=== PATIENT | male | born 1930 | race Caucasian/White ===

== ENCOUNTER 2019-05-29 09:00 | Inpatient (IN) | payer MEDICARE, OTHER ==
[~2019-05-29] VITALS: Ht 167.6 cm; Wt 63.6 kg
[~2019-05-29 09:00] MED LIST: ASCO500C7 PO; ASPI-903 PO; BISA10SU16 RC; FURO20TA3 PO; METO-448 PO; MINE133E23 PR; MULT-506 PO; PANT40TA4 PO; POLY17PO28 PO; SENN-120 PO; SPIR25TA PO; UDKCL40 PO
[2019-05-29] MEDS ORDERED: CEFEPIME 2GM/50 ML (PMX) 50 ML IVPB STA (09:04)
[2019-05-29] MEDS ORDERED: morphine 4 MG/ML VIAL IV STA (09:23)
[2019-05-29] MEDS ORDERED: ONDANSETRON 4 MG INJ IV STA (09:23)
[2019-05-29] MEDS ORDERED: ONDANSETRON 4 MG INJ IV PRN ×2 (09:30→20:00)
[2019-05-29] MEDS ORDERED: ACETAMINOPHEN 325 MG TAB PO PRN (09:30)
[2019-05-29] MEDS ORDERED: ACETAMINOPHEN 650 MG SUPP PR ONE (09:30)
[2019-05-29] MEDS ORDERED: VANCOMYCIN 1 GM (PMX) 250 ML IVPB ONE (09:30)
[2019-05-29] MEDS ORDERED: SODIUM CHLORIDE 0.9% 1L BAG IV* STA (09:51)
--- NOTE | 2019-05-29 10:19 | ERD ---
ER Documentation Chief Complaint Chief Complaint shortness of breath, fever HPI Patient is a 88-year-old male with CHF who presents with altered mental status. Please note the history and physical exam is limited secondary to patient's mental status. [facility] The patient had a 101 temp and was 81% on 4 L of oxygen. The patient is increased to 90% with paramedics. He is awake alert and oriented x1 normally. He was tachycardic. He was brought in by ambulance. He is a DNR. Upon review of old medical records this is the patient's first visit to the emergency department. The patient's primary doctor is Dr. Wayne. ROS All systems reviewed and are negative except as per history of present illness. Medications Home Meds Reported Medications Polyethylene Glycol* (Polyethylene Glycol*) 17 Gm Powd.pack, 17 GM PO DAILY PRN for CONSTIPATION, #30 PACKET 05/29/19 Mineral Oil* (Fleet* Mineral Oil Enema) 133 Ml Oil, 133 ML OR DAILY PRN for CONSTIPATION, ENEMA 05/29/19 Bisacodyl (Biscolax) 10 Mg Supp.rect, 10 MG RC DAILY PRN for CONSTIPATION, SUPP.RECT 05/29/19 Ascorbic Acid* (Vitamin C*) 500 Mg Capsule.sa, 500 MG PO BID, CAP 05/29/19 Potassium Chloride* (KCl*) 40 Meq/30 Ml Soln, 20 MEQ PO DAILY, MEQ 05/29/19 Multivitamin with Minerals (Multiple Vitamin) 1 Each Tablet, 1 EACH PO DAILY, TAB 05/29/19 Pantoprazole* (Pantoprazole*) 40 Mg Tablet.dr, 40 MG PO AC BREAKFAST, TAB 05/29/19 Metoprolol Tartrate* (Lopressor*) 25 Mg Tab, 12.5 MG PO BID, #60 TAB 05/29/19 Furosemide* (Furosemide*) 20 Mg Tablet, 20 MG PO BID, #30 TAB 05/29/19 Polyethylene Glycol* (Polyethylene Glycol*) 17 Gm Powd.pack, 17 GM PO BID, #60 PACKET 05/29/19 Aspirin* (Aspirin* Chew) 81 Mg Tab.chew, 81 MG PO DAILY, TAB.CHEW 05/29/19 Spironolactone* (Aldactone*) 25 Mg Tablet, 25 MG PO DAILY, #30 TAB 05/29/19 Sennosides* (Senna Lax*) 8.6 Mg Tablet, 1 TAB PO DAILY, TAB 05/29/19 Allergies Allergies: Coded Allergies: No Known Allergy (Unverified , 05/29/19) PMhx/Soc Hx Respiratory Disorders: Yes (COPD) Hx Cardiac Disorders: Yes (CHF; HTN) Hx Miscellaneous Medical Probl: Yes (ACUTE ENCEPHALOPATHY; UTI) Hx Alcohol Use: No Hx Substance Use: No Hx Tobacco Use: No Smoking Status: Never smoker FmHx Unable to obtain Physical Exam Vitals Vital Signs Date Temp Pulse Resp B/P (MAP) Pulse Ox O2 O2 Flow FiO2 Time Delivery Rate 05/29/19 126 42 122/58 93 Non 09:43 (79) Rebreathe r 05/29/19 103.0 09:18 05/29/19 Rebreathe 15 09:00 r 05/29/19 103.0 132 50 123/68 92 09:00 (86) Physical Exam Const: Severe distress Head: Atraumatic Eyes: Normal Conjunctiva ENT: Dry mucous membranes with purple tongue Neck: Full range of motion. No meningismus. Resp: Coarse breath sounds bilaterally Cardio: Tachycardic rate Abd: Soft, non tender, non distended. Normal bowel sounds Skin: No petechiae or rashes Back: No midline or flank tenderness Ext: No cyanosis, or edema Neur: Altered and not responding to pain or commands Result Diagram: 05/29/1991105/29/19911 Results 24 hrs Laboratory Tests Test 05/29/19 09:12 White Blood Count 39.0 10^3/ul Red Blood Count 4.52 10^6/ul Hemoglobin 11.7 g/dl Hematocrit 39.7 % Mean Corpuscular Volume 87.8 fl Mean Corpuscular Hemoglobin 25.9 pg Mean Corpuscular Hemoglobin Concent 29.5 g/dl Red Cell Distribution Width 21.1 % Platelet Count 425 10^3/UL Mean Platelet Volume 10.5 fl Immature Granulocytes % 1.200 % Neutrophils % % Segmented Neutrophils % (Manual) 55 % Band Neutrophils % (Manual) 10 % Lymphocytes % % Lymphocytes % (Manual) 31 % Reactive Lymphocytes % (Manual) 1 % Monocytes % % Monocytes % (Manual) 3 % Eosinophils % % Basophils % % Nucleated Red Blood Cells % 0.0 /100WBC Immature Granulocytes # 0.470 10^3/ul Neutrophils # 10^3/ul Neutrophils # (Manual) 23.0 10^3/ul Band Neutrophils # 3.9 10^3/ul Lymphocytes (Manual) 12.0 10^3/ul Lymphocytes # 10^3/ul Reactive Lymphocytes # 0.3 10^3/ul Monocytes # 10^3/ul Monocytes # (Manual) 1.1 10^3/ul Eosinophils # 10^3/ul Basophils # 10^3/ul Nucleated Red Blood Cells # 10^3/ul White Cell Morphology Comment @See below Platelet Estimate NORMAL Giant Platelets 1 % Anisocytosis 3+ Macrocytosis 3+ Red Cell Morphology Comment @See below Prothrombin Time 19.9 Sec Prothrombin Time Ratio 1.6 INR International Normalized Ratio 1.68 Activated Partial Thromboplast Time 27.5 Sec Sodium Level 155 mmol/L Potassium Level 4.4 mmol/L Chloride Level 122 mmol/L Carbon Dioxide Level 23 mmol/L Anion Gap 10 Blood Urea Nitrogen 48 mg/dl Creatinine 1.26 mg/dl Est Glomerular Filtrat Rate mL/min mL/min Glucose Level 240 mg/dl POC Venous Lactate 2.3 mmol/L Calcium Level 9.9 mg/dl Total Bilirubin 0.8 mg/dl Direct Bilirubin 0.00 mg/dl Indirect Bilirubin 0.8 mg/dl Aspartate Amino Transf (AST/SGOT) 93 IU/L Alanine Aminotransferase (ALT/SGPT) 100 IU/L Alkaline Phosphatase 59 IU/L Troponin I 0.421 ng/ml Total Protein 8.3 g/dl Albumin 3.5 g/dl Globulin 4.80 g/dl Albumin/Globulin Ratio 0.72 Current Medications Medications Dose Sig/Neo Start Time Status Last (Trade) Ordered Route PRN Stop Time Admin Dose Reason Admin Cefepime HCl 50 ml @ ONCE STAT 05/29/19 DC 05/29/19 100 mls/hr IVPB 09:04 09:18 05/29/19 09:33 Vancomycin 250 ml @ ONCE ONCE 05/29/19 05/29/19 HCl 125 mls/hr IVPB 09:30 09:56 05/29/19 11:29 650 mg ONCE ONCE 05/29/19 DC 05/29/19 Acetaminophen OR 09:30 09:18 (Tylenol 05/29/19 09:31 Supp) Ondansetron 4 mg BRIDGE ORDER 05/29/19 HCl (Zofran PRN IV 09:30 Inj) NAUSEA/VOMITI 05/30/19 09:29 NG 650 mg ER BRIDGE 05/29/19 Acetaminophen PRN PO 09:30 (Tylenol .MILD PAIN 05/30/19 09:29 Tab) 1-3 OR TEMP Morphine 4 mg ONCE STAT 05/29/19 DC 05/29/19 Sulfate IV 09:23 09:37 (morphine) 05/29/19 09:24 Ondansetron 4 mg ONCE STAT 05/29/19 DC 05/29/19 HCl (Zofran IV 09:23 09:37 Inj) 05/29/19 09:24 Sodium 2,100 ml BOLUS OVER 2 05/29/19 DC 05/29/19 Chloride HOURS STAT 09:51 09:52 (NS) IV* 05/29/19 09:52 Aspirin 300 mg ONCE ONCE 05/29/19 (Aspirin) OR 10:30 05/29/19 10:31 Procedures/MDM Chest x-ray shows pneumonia per radiology. EKG read by me: Rate/Rhythm: Sinus tachycardia Intervals: Normal Impression: Tachycardia without ST elevations Sepsis Documentation: Patient's infectious symptoms have not stabilized and the patient is at risk of rapid decompensation. The patient will be admitted for careful hydration, antibiotic therapy, and infectious source control. SEVERE SEPSIS CRITERIA: Infectious source: Pneumonia End organ damage indicated by: Positive troponin, acute respiratory failure SEPSIS MANAGEMENT Time of recognition of sepsis: 9:12 AM. Time of recognition of severe sepsis: 9:12 AM. Time of recognition of septic shock: No septic shock at this time. 3 HOUR BUNDLE Blood cultures x 2 before broad-spectrum antibiotics: Yes 30 ml/kg NS bolus completed Initial lactate 2.3 Repeat lactate pending SEPTIC SHOCK ASSESSMENT: No lactic acid > 4.0 No persistent hypotension (SBP < 90 or 40 mmHg drop, MAP < 65) despite 30 mL/kg IV fluid bolus VOLUME REASSESSMENT FOR SEPTIC SHOCK: No septic shock at this time PERSISTENT HYPOTENSION TREATMENT: Dr. Simpson is ordering an inpatient hospice evaluation Central line not Required Vasopressor started not required I considered further perfusion assessment with CVP measurement, SCVO2, bedside ultrasound volume assessment, passive leg raise, trial of further fluid bolus. And proceeded with 30 ml/kg fluid bolus of NSS, broad spectrum antibiotics, and admission. Patient was given rectal Tylenol for fever and rectal aspirin for positive troponin. I believe the patient is a poor prognosis given his age and comorbidities. The patient would be a good candidate for inpatient hospice as I do believe he is actively dying. CRITICAL CARE Critical care time 35 minutes Emergent fluid management while maintaining close respiratory support. Provision of immediate and broad-spectrum antibiotic therapy. Simultaneous assessment for possible sources in order to direct targeted therapy. Consideration for invasive and chemical support to prevent cardiopulmonary collapse. Critical care time is independent of procedures performed. Departure Diagnosis: Primary Impression: NSTEMI (non-ST elevated myocardial infarction) Additional Impressions: Severe sepsis Pneumonia Pneumonia type: due to unspecified organism Laterality: unspecified laterality Lung location: unspecified part of lung Qualified Codes: J18.9 - Pneumonia, unspecified organism Condition: Serious LARY VILLARREAL MD May 29, 2019 10:19
[2019-05-29] MEDS ORDERED: ASPIRIN 300 MG SUPP PR ONE (10:30)
[2019-05-29] MEDS ORDERED: METOPROLOL 5 MG INJ ONE (12:00)
[2019-05-29 19:31] VITALS: BP 117/59; PULSE 120; RESP 23
[2019-05-29] MEDS ORDERED: VANCOMYCIN IV PER PHARMACY XX SCH (20:00)
[2019-05-29] MEDS ORDERED: morphine 2 MG INJ IV PRN (20:00)
[2019-05-29] MEDS: DEXTROSE 5%-0.9% NACL 1,000 ML IV SCH (20:16)
--- NOTE | 2019-05-29 20:31 | HP ---
DATE OF ADMISSION: 05/29/2019 HISTORY OF PRESENT ILLNESS: An 88-year-old male who was admitted through emergency room. The patien t was transferred from [place] upon my request after receiving a phone call from [facility] that the patient is in acute respiratory distress, hypoxic and tachycardic. 911 was c alled, and the patient was brought in via ambulance to the emergency room. In the ambulance, the pat bipin had a 101 temperature, 81% on 4 liters of oxygen saturation, and tachycardic in the 100s and 110 s. When the patient was brought in the ER, he was put on a mask 15%. Saturation went up to 90s, and he was breathing a little bit better, still tachycardic. The patient is awake and alert x1. This i s a patient of mine of many years who has been at our correction facility in the past and recent ly hospitalized for aspiration pneumonia, advanced encephalopathy and CHF. The patient, at the time, the family decided that he would have a G-tube, and therefore post-hospitalization transfer to [facility] [place]. At [place] today, as I mentioned above, increasing shortness of breath, tachypnea, hypoxia, and then transferred to the emergency room. The patient, upon his req uest, is DNR. HOME MEDICATIONS: 1. He has stool softeners p.r.n. as necessary. 2. Vitamin C daily. 3. Potassium chloride 40 daily. 4. Multivitamins daily. 5. Protonix 40 daily. 6. Metoprolol 25 mg half a tablet twice a day. 7. Lasix 20 mg tablet daily. 8. Aspirin 81 mg daily. 9. Spironolactone 25 mg p.o. daily. ALLERGIES: NO KNOWN ALLERGIES. PAST MEDICAL HISTORY: Advanced encephalopathy, COPD, hypertension with heart disease and heart failu re, chronic UTIs, dysphagia, gastroesophageal reflux disease and dyslipidemia. PAST SURGICAL HISTORY: No history of alcohol abuse or drug abuse. No history of smoking. The patie nt has a family history of hypertension. REVIEW OF SYSTEMS: Unable to get, as I mentioned earlier, any history from the patient because he is confused, only responds to painful stimuli, and generally the patient is overall confused. PHYSICAL EXAMINATION: VITAL SIGNS: At this time, blood pressure is 100/60, respiratory rate is 18, and he is saturating 93 % on a nonrebreather mask, 15% oxygen, and heart rate is 98, temperature 103.0 at this time. PHYSICAL EXAMINATION: GENERAL: The patient is in severe distress, pale, cachectic and diaphoretic. HEENT: Head is atraumatic, normocephalic. Pupils are equal and reactive to light. Extraocular musc les are intact. Nares are clear, no obstruction, no deviation of the septum. Oral cavity: Normal o ral hygiene. Dry tongue. NECK: Supple. No JVD, no surgical scars, no lymph nodes palpable over the neck. CHEST: AP contour is deformed due to deformities over the rib cage and thoracic spine. HEART: S1, S2, tachycardic with a harsh systolic murmur over the apex and cardiomegaly. LUNGS: Scattered rhonchi over the lungs with inspiratory and expiratory wheezes and poor effort on t he patient's side. ABDOMEN: Soft, positive bowel sounds, no hepatosplenomegaly, no masses palpable over the abdomen, an d no rebound tenderness. EXTREMITIES: No edema, clubbing or cyanosis of the extremities. NEUROLOGIC: Unable to assess neurologically due to the altered mental status and no response of the patient. LABORATORY DATA: Labs today: CBC: White count is 39,000, hemoglobin 11.7, hematocrit 39.7, and viry telet count 425. Chemistry: Sodium 155, potassium 4.4, glucose 122, BUN is 48, creatinine 1.26. Ch est x-ray shows cardiomegaly with CHF and pneumonia. Cardiac enzymes, first set 0.4, positive tropon in. PLAN: I had long discussion with the family members, the nephew, the brothers, the brother's son who are responsible for him, and according to his request, the patient wanted to be DNR. Therefore, I e xplained to them that the patient's situation is that the patient is very sick with severe sepsis, an d we will try to do our best for him without intubation. Therefore, start IV antibiotic, IV hydratio n. Will consult with manager produce, infectious disease, and also with the special education curriculum specialist. ADMITTING DIAGNOSES: 1. Severe sepsis. 2. Pneumonia. 3. Congestive heart failure. 4. Hypoxemia. 5. Possible ischemia. 6. Encephalopathy. Dictated By: IRA BERMAN/HARJIT Conf#: [id number] [facility]#: [id number]
[2019-05-29] MEDS: ALBUTEROL/IPRATROPIUM (NEB) 3 ML AMP HHN SCH (20:56)
[2019-05-29] MEDS: CEFEPIME 2GM/50 ML (PMX) 50 ML IVPB SCH (21:28)
[2019-05-29 22:10] VITALS: Ht 167.6 cm; Wt 63.6 kg
[2019-05-30] VITALS (17 sets, daily range): BP systolic 92–136; BP diastolic 47–63; PULSE 107–133; RESP 17–33
[2019-05-30] MEDS: PANTOPRAZOLE 40 MG INJ IV SCH (05:32)
[2019-05-30] MEDS: ACETAMINOPHEN 650 MG SUPP PR PRN (08:00)
[2019-05-30] MEDS ORDERED: METOPROLOL 5 MG INJ IV ONE (09:00)
[2019-05-30] MEDS: CEFEPIME 2GM/50 ML (PMX) 50 ML IVPB SCH ×2 (09:04→20:17)
[2019-05-30] MEDS: ALBUTEROL/IPRATROPIUM (NEB) 3 ML AMP HHN SCH ×3 (09:29→20:55)
[2019-05-30] MEDS: VANCOMYCIN 1 GM 250 ML IVPB SCH (09:55)
[2019-05-30] MEDS ORDERED: HEPARIN 1000 UNITS/ML 10 ML INJ IV ONE (10:00)
[2019-05-30] MEDS ORDERED: HEPARIN 1000 UNITS/ML 10 ML INJ IV PRN (10:00)
[2019-05-30] MEDS ORDERED: HEPARIN 25000 UNITS/250 ML 250 ML IV SCH (10:00)
--- NOTE | 2019-05-30 10:17 | QN ---
Documentation Comment PERSONAL ASSISTANT called. Was notified roughly around 9:40 AM to 9:45 AM. Patient seen and reported with elevated heart rate around 130s. Patient upon interview was alert but unable to answer verbally. Suspect with underlying dementia as per RN. Noted to be tachypneic and provided with o2 via simple mask. ABG orderd (results pending). Noted with fevers has been 101.6 at 8 AM. Patient with Septic picture. Patient was provided with 5 milligrams IV metoprolol with good response and heart rate did decrease to around 101. BP was 107/47. Patient also with elevated troponin upward trending and patient was placed on heparin drip. Order was plan for patient to go to telemetry. Chest x-ray also ordered. EKG obtained with sinus tachycardia. RN notified to call primary physician for notification as well as ventilation worker. Patient stabilized and transfer to telemetry Discussed POC with MAURILIO Manriquez NP May 30, 2019 10:17
--- NOTE | 2019-05-30 10:31 | PN ---
DATE: 05/30/2019 SUBJECTIVE: He is an 88-year-old male who was admitted through emergency room for acute respiratory distress, acute hypoxemia and sepsis with fever of 103. The patient being DNR was admitted to med/[facility] and started on IV hydration, IV antibiotic treatment and breathing treatments. Today 05/30/2019, the patient still is running a fever of 101. The patient is a lethargic, grasping for air. He is on a 15% oxygen mask and he is generally a very poor response, nonresponsive. He has history of advanc ed Alzheimer dementia and at this point today, he is confused and very lethargic. OBJECTIVE: VITAL SIGNS: Blood pressure is 116/55, heart rate is 133, respiratory rate is 32 and he is on a mask with 15% and his temperature is 101.6. GENERAL: He is grasping for air. HEART: S1, S2, regular rate and rhythm with cardiomegaly. LUNGS: Scattered rhonchi and crackles over the lungs bilaterally. ABDOMEN: Soft, positive bowel sounds, no hepatosplenomegaly, no masses palpable over the abdomen and no rebound tenderness. EXTREMITIES: No edema, clubbing or cyanosis of the extremities. LABORATORY DATA: Today, the sodium is 158, potassium is 4.6, BUN 64, creatinine 1.48. His troponins are elevated today 0.303, yesterday 0.286 and he has elevated BNP 71,000. CBC today, white count is 36,000, down from 39,000 yesterday. Hemoglobin is 10.8, hematocrit 38, platelet count 312. Patient 's blood cultures came back positive to gram-positive cocci in pairs and chains. ADMITTING DIAGNOSES: 1. Severe sepsis. 2. Pneumonia. 3. Respiratory distress. 4. Congestive heart failure. 5. Possible ischemia, rule out myocardial infarction. 6. Encephalopathy. 7. Degenerative joint disease. 8. Gastroesophageal reflux disease. 9. Hypotension. PLAN: The patient should be transferred to tele. Even though the patient is DNR, we should address elevated heart rate with some IV metoprolol because the patient is at this point unable to take anyth ing orally. For close monitoring, ordered the patient to be transferred to tele. Will call Dr. Hi adams for cardiac consult, ID consult with Dr. Sow and continue IV hydration, IV antibiotic and caridad thing treatments. Dictated By: IRA GALINDO MD SB/NTS Conf#: [id number] DID#: [id number] CC: JOCE ALBERT MD;*EndCC*
[2019-05-30] MEDS ORDERED: METOPROLOL 5 MG INJ IV PRN (13:30)
[2019-05-30] MEDS ORDERED: DIGOXIN 500 MCG INJ IV ONE (13:30)
--- NOTE | 2019-05-30 15:00 | CONS ---
DATE OF ADMISSION: 05/29/2019 DATE OF CONSULTATION: 05/30/2019 TYPE OF CONSULTATION: Infectious Disease. REASON FOR CONSULTATION: Antibiotic management. HISTORY OF PRESENT ILLNESS: Ace Gross is an 88-year-old [place] male who comes in wi th shortness of breath and fever. Patient has a history of CHF and presents with altered mental stat us. Comes from [facility] facility with a temperature of 101 and was 81%, oxygen saturation on 4 liters of oxygen. He was increased to 90% with paramedics. He is alert x1. He is tachycardic. H e is a DNR. His primary doctor is Dr. Wayne. PAST MEDICAL PROBLEMS: Include: 1. COPD. 2. Congestive heart failure. 3. Hypertension. 4. Acute encephalopathy. 5. Urinary tract infection. 6. Probable senile dementia. Acutely, the patient presents in moderate to severe distress. His temperature was 103, his pulse was 132, respirations of 50, consistent with systemic inflammatory response syndrome. His white count w as 39,000, H and H 11.7/39.7, platelet count 425,000. BUN and creatinine 48/1.26, glucose of 240. PAST MEDICAL HISTORY: As outlined. FAMILY HISTORY: Noncontributory. SOCIAL HISTORY: He does not smoke, drink or abuse drugs. ALLERGIES: NONE TO PENICILLIN, SULFA OR FOODS. MEDICATIONS: Per chart. REVIEW OF SYSTEMS: Noncontributory. PHYSICAL EXAMINATION: GENERAL: The patient is awake, responsive, in some moderate to severe distress. VITAL SIGNS: T-max 103. SKIN: Without generalized rash. HEENT: Within normal limits. NECK: Supple. LYMPH NODES: None palpable. CHEST: Coarse rhonchi bilaterally with decreased breath sounds at the bases. HEART: Tachycardic. ABDOMEN: Soft, nontender, without organosplenomegaly or masses. EXTREMITIES: Without cyanosis, clubbing, or edema. RECTAL AND GENITAL: Deferred. NEUROLOGIC: No focal neurological abnormality. IMPRESSION AND PLAN: Patient was started on vancomycin and cefepime. EKG showed sinus tachycardia. Chest x-ray shows right basilar pneumonia, mild cardiomegaly with aortic atherosclerosis. Additiona l patchy opacities in the left lung which may reflect edema or multifocal pneumonia. Blood cultures positive for gram-positive cocci in pairs and chains, 1/2 bottles. White count today is 36,000. The patient is clearly septic, on vancomycin and cefepime. The patient's primary physician is Dr. Mahendra zepeda. The patient with severe sepsis, pneumonia, congestive heart failure, possible ischemia and enc ephalopathy. Today, his temperature is still 10/17/2018 is lethargic and gasping for air. He is on 15% oxygen mask. He has advanced Alzheimer's. He should be transferred to telemetry. Even though t he patient is DNR, we should address elevated heart rate with IV metoprolol. Dr. Rosenthal was called for cardiac consultation and we were called for infectious disease. At this point, he is on appropri ate antibiotic therapy. I want to thank Dr. Wayne for asking us to see this unfortunate gentleman in consultation. Dictated By: MURALI BURKS MD, JD/HARJIT Conf#: [id number] DID#: [id number] CC: IRA WAYNE MD;*End*
[2019-05-30] MEDS: DEXTROSE 5%-0.9% NACL 1,000 ML IV SCH (16:16)
--- NOTE | 2019-05-30 17:15 | RADRPT ---
Echocardiogram Report Patient Name: FADUMO LANPatient ID: [id number] : 109 (88y 10m)Study Date: 05/30/2019 2:41:34 PM Gender: MAccession #: [id number] Tech: Tip Morrissey [facility] Location: [address] Ref.Physician: JOCE ROSENTHAL Height(Cm): BSA: Weight(Kg): Quality: AdequateOrder Physician: JOCE ROSENTHAL Account #: Procedures: Echocardiographic Report: Transthoracic echocardiogram with complete 2D, M-Mode, and doppler examination. Indications: Positive Troponin, and Tachycardia. Measurements: 2D/M Mode Doppler Measurement Value Normal Range Measurement Value Normal Range LVIDd 2D 5.1 [ 4.2 - 5.8 ] cm SABRINA VTI 0.5 [ 2.0 - 4.0 ] cm2 LVIDs 2D 4.2 [ 2.5 - 4.0 ] cm AV Mean Art 3.7 [ 70.0 - 90.0 ] cm/sec LVPWd 2D 1.3 [ 0.6 - 1.0 ] cm AV Mean PG 67.0 [ 2.0 - 4.0 ] mmHg IVSd 2D 1.4 [ 0.6 - 1.0 ] cm AV VTI 112.0 cm IVS/LVPW 2D 1.0 ratio LVOT Mean Art 0.7 [ 60.0 - 80.0 ] cm/sec AoR Diam 2D 2.9 [ 2.6 - 3.4 ] cm LVOT Mean PG 2.0 [ 1.0 - 3.0 ] mmHg LA/Ao 2D 1 ratio LVOT Peak Art 1.0 [ 70.0 - 110.0 ] cm/sec LA Dimen 2D 3.8 [ 3.0 - 4.0 ] cm LVOT Peak PG 4.0 [ 2.0 - 6.0 ] mmHg LVOT Diam 2.0 [ 2.3 - 2.9 ] cm LVOT VTI 20.4 [ 20.0 - 30.0 ] cm LVOT Area 3.1 cm2 MV E Peak Art 1.4 [ 60.0 - 130.0 ] cm/sec MV Decel Time 183 [ 104 - 258 ] msec TR Peak Art 4.1 [ 100.0 - 280.0 ] cm/sec TR Peak PG 68.0 mmHg RVSP 71.0 [ 10.0 - 36.0 ] mmHg RA Pressure 3.0 mmHg Findings: Left Ventricle: Lower limits of normal systolic function. Normal left ventricular cavity size. Mild concentric left ventricular hypertrophy. Moderate global left ventricular systolic dysfunction. Ejection fraction is visually estimated at 35 %. Tissue Doppler/Mitral Doppler indices are consistent with restrictive physiology with markedly elevated left atrial pressure (Stage III-IV diastolic dysfunction). Right Ventricle: Normal right ventricular size. Normal right ventricular systolic function. Left Atrium: The left atrium is normal in size. Right Atrium: The right atrium is normal in size. Mitral Valve: Mitral valve leaflets appear mildly thickened. Mild mitral annular calcification. Mild to moderate mitral valve regurgitation. Aortic Valve: Severe aortic stenosis. Aortic valve Max velocity 6.20 m/sec. Max PG 154.00 mmHg. Mean PG 83.00 mmHg. Aortic valve area 0.51 cm2. Severe Aortic sclerosis. Moderate aortic valve regurgitation. Tricuspid Valve: Normal appearance of the tricuspid valve. The estimated Peak RVSP is 71 mmHg. There is mild to moderate tricuspid regurgitation. Pericardium: Normal pericardium with no significant pericardial effusion. Left pleural effusion seen. Aorta: Normal aortic root. IVC: Normal size and normal respiratory collapse consistent with normal right atrial pressure. Conclusions: Lower limits of normal systolic function. Normal left ventricular cavity size. Mild concentric left ventricular hypertrophy. Moderate global left ventricular systolic dysfunction. Ejection fraction is visually estimated at 35 %. Tissue Doppler/Mitral Doppler indices are consistent with restrictive physiology with markedly elevated left atrial pressure (Stage III-IV diastolic dysfunction). Mitral valve leaflets appear mildly thickened. Mild mitral annular calcification. Mild to moderate mitral valve regurgitation. Severe aortic stenosis. Aortic valve Max velocity 6.20 m/sec. Max PG 154.00 mmHg. Mean PG 83.00 mmHg. Aortic valve area 0.51 cm2. Severe Aortic sclerosis. Moderate aortic valve regurgitation. Normal appearance of the tricuspid valve. The estimated Peak RVSP is 71 mmHg. There is mild to moderate tricuspid regurgitation. Normal pericardium with no significant pericardial effusion. Left pleural effusion seen. Electronically Signed By: Joce Rosenthal 2019-05-30 17:14:51 PDT
--- NOTE | 2019-05-30 17:18 | RADRPT ---
Vent Rate: 130 bpm RR Interval: 460 msec NV Interval: 126 msec QRS Duration: 88 msec QT Interval: 338 msec QTC Interval: 498 msec P-R-T [place]: 62 - 38 - 197 degrees Sinus tachycardia...rate> 99 LVH with secondary repolarization abnormality...multi-LVH criteria, abnrm ST-T Anterior Q waves, possibly due to LVH...Q >30mS in V2-V5 & LVH Electronically Signed By: Joe Rosenthal
--- NOTE | 2019-05-30 17:23 | CONS ---
DATE OF ADMISSION: 05/29/2019 DATE OF CONSULTATION: 05/30/2019 TYPE OF CONSULTATION: Cardiology. REASON FOR CONSULTATION: Tachycardia, congestive heart failure. REQUESTING PHYSICIAN: Nick Galindo MD HISTORY OF PRESENT ILLNESS: Mr. 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 Upon arrival, temperature of 103, blood pressure 122/68, pulse 132, respiratory rat e 15, satting 93% on 15 liters nonrebreather. The patient's labs were notable for a white blood cell count of 39,000, hemoglobin 11.7, platelet count of 425, sodium of 155, potassium 4.4, creatinine 1. 26, BUN of 48, lactic acid of 2.5, troponin of 0.421, AST of 93, ALT 100, BNP of 71,700, INR 1.68, UA positive. The patient underwent a chest x-ray which revealed mild cardiomegaly with aortic atherosc lerosis, right basilar pneumonia. The patient underwent electrocardiogram which revealed sinus tachy cardia, rate of 130, normal axis, normal intervals, left ventricular hypertrophy by voltage criteria with secondary repolarization abnormalities. The patient subsequently required admit to the floor an d into the ICU now where he remains. The patient is nonresponsive to questioning of his chest pain o r shortness of breath. PAST MEDICAL HISTORY: As above in HPI. MEDICATIONS CURRENTLY IN HOSPITAL: 1. Vancomycin. 2. Protonix. 3. Cefepime. 4. IV fluid hydration of 50 mL an hour. 5. Tylenol. 6. Morphine. 7. Zofran. ALLERGIES: NO KNOWN DRUG ALLERGIES. SOCIAL HISTORY: No current tobacco, EtOH or illicit drug use. FAMILY HISTORY: No history of sudden cardiac or early CAD. REVIEW OF SYSTEMS: As above in HPI. CONSTITUTIONAL: No fevers, chills. PULMONARY: Positive tachypnea. GASTROINTESTINAL: No vomiting. GENITOURINARY: No hematuria, but renal failure. PSYCHIATRIC: No documented psychiatric history. NEUROLOGIC: No documented history of CVA. ENDOCRINE: No documented history of diabetes mellitus or thyroid disease. PHYSICAL EXAMINATION: VITAL SIGNS: Temperature 97.9, blood pressure 114/53, pulse 117, respiratory rate 17, satting 98% on 6 liters. GENERAL: The patient is encephalopathic, nonresponsive, facemask in place. NECK: JVP is approximately 9 cm water. CHEST: Upper airway transmitted rhonchorous sounds. HEART: Tachycardic, regular rhythm, increased S2, I/ systolic murmur, nondisplaced PMI. ABDOMEN: Positive bowel sounds, soft. EXTREMITIES: Trace edema, 1+ pulses bilateral posterior tibial. LABORATORY DATA: Most recently from today, sodium 158, potassium 4.6, creatinine 0.48, BUN of 64. T roponin 0.303. BNP of 71,700. IMAGING STUDIES: Chest x-ray from today revealing bilateral lower lung alveolar infiltrates or pneum onia. ELECTROCARDIOGRAM: As above in HPI. No further electrocardiograms for my review at this time. IMPRESSION: 1. Tachycardia at this time consistent with sinus tachycardia. 2. Abnormal electrocardiogram, diffuse nonspecific ST and T-wave abnormalities, assess for acute cor onary syndrome. 3. Positive troponins in the setting of renal failure likely type 2 demand infarct. Continue to ass ess. 4. Bacteremia. Blood cultures are positive from 05/29/2019. 5. Anemia. 6. Leukocytosis, severe. 7. Renal failure. 8. Hypernatremia. 9. Elevated BNP. 10. Coagulopathy. 11. Urinary tract infection. RECOMMENDATIONS: 1. At this time, we would maintain the patient in ICU or tele for close monitoring. 2. Continue the patient's broad-spectrum antibiotics and follow up all culture data and sensitivitie s. 3. We will give patient a dose of digoxin in attempt to improve heart rate control and consider IV p ush dose of beta karen as tolerated to improve overall heart rate control. 4. Check a 2D echo for this patient's ejection fraction, wall motion, rule out any major valve abnor malities. 5. Continue the patient's IV fluid hydration at this time needing free water for elevated sodium as well. 6. Continue to trend the patient's cardiac enzymes, assess for any significant ongoing cardiac damag e. 7. Continue the patient's respiratory support. Thank you for allowing me to take part in the care of this patient. I will continue to follow him al juana very closely with you with further recommendations to be made as the patient progresses to his in patient hospital clinical course. Dictated By: JOCE MORALES/HARJIT Conf#: [id number] DID#: [id number] CC: NICK GALINDO MD;*EndCC*
[2019-05-31] VITALS (17 sets, daily range): BP systolic 91–119; BP diastolic 44–63; PULSE 97–154; RESP 24–36
[2019-05-31] MEDS: PANTOPRAZOLE 40 MG INJ IV SCH (05:07)
[2019-05-31] MEDS: DEXTROSE 5% 1,000 ML IV SCH (06:48)
[2019-05-31] MEDS: ALBUTEROL/IPRATROPIUM (NEB) 3 ML AMP HHN SCH ×3 (08:40→19:38)
[2019-05-31] MEDS: CEFEPIME 2GM/50 ML (PMX) 50 ML IVPB SCH (08:50)
[2019-05-31] MEDS ORDERED: DIGOXIN 500 MCG INJ IV ONE ×3 (09:50→16:00)
[2019-05-31] MEDS ORDERED: DILTIAZEM 25 MG INJ IV ONE (10:30)
[2019-05-31] MEDS: VANCOMYCIN 1 GM 250 ML IVPB SCH (10:55)
[2019-05-31] MEDS ORDERED: AMIODARONE 900 MG in DEXTROSE 5% 482 ML IV SCH (12:30)
[2019-05-31] MEDS ORDERED: AMIODARONE 150MG/D5W BOLUS 100 ML IV ONE (12:30)
--- NOTE | 2019-05-31 13:04 | CONS ---
Assessment/Plan Assessment/Plan Hospital Course (Demo Recall) IMPRESSION: 1. Tachycardia at this time consistent with sinus tachycardia- This am c/w AF. 2. Abnormal electrocardiogram, diffuse nonspecific ST and T-wave abnormalities, assess for acute coronary syndrome.- no significant uotrend 3. Positive troponins in the setting of renal failure likely type 2 demand infarct. Continue to assess. 4. Bacteremia. Blood cultures are positive from 05/29/2019. 5. Anemia. 6. Leukocytosis, severe. 7. Renal failure. 8. Hypernatremia. 9. Elevated BNP. 10. Coagulopathy. 11. Urinary tract infection. 12. hypernatremia Recc: -Tele -serial ecg's -Continue abx's and f/u cx data -Will give additional digoxin IVP -start amiodarone -free water for elevated na -recheck INR and see if there is need for systemic anticoag -continue IVP BB as tolerated Consultation Date/Type/Reason Admit Date/Time May 29, 2019 at 09:16 Initial Consult Date 05/30/19 Type of Consult Cardiology Reason for Consultation tachycardia Requesting Provider: IRA GALINDO MD Date/Time of Note DATE: 05/31/19 TIME: 12:56 Exam/Review of Systems Vital Signs Vitals Vital Signs Date Temp Pulse Resp B/P (MAP) Pulse Ox O2 O2 Flow FiO2 Time Delivery Rate 05/31/19 154 32 93/60 (71) 98 10:00 05/31/19 3.0 08:40 05/31/19 98.1 Nasal 08:00 Cannula Intake and Output 05/30/19 05/30/19 05/31/19 1515:00 23:00 07:00 IntakeIntake Total 700 ml 450 ml 350 ml OutputOutput Total 200 ml 150 ml 300 ml BalanceBalance 500 ml 300 ml 50 ml Exam Exam Review of Systems: CONSTITUTIONAL: No fevers, chills. PULMONARY: No sob CARDIOVASCULAR: No chest pain/palpitations GASTROINTESTINAL: No nausea/vomiting. GENITOURINARY: No hematuria/dysuria. MUSCULOSKELETAL: No myagias/arthalgias. PSYCHIATRIC: The patient denies depression. NEUROLOGIC: No weakness Constitutional: alert, oriented Psych: no complaints Head: normocephalic ENMT: mucosa pink and moist Neck: supple, jvd (9 cm water) Respiratory: diminished breath sounds (at bases/B) Cardiovascular: regular rate and rhythm Gastrointestinal: soft, non-tender Musculoskeletal: muscle weakness (generalized) Extremities: edema (none) Neurological: other (No focal deficits) Labs Result Diagram: 05/31/19 0453 05/31/19 0453 Results 24hrs Laboratory Tests Test 05/30/19 19:00 05/31/19 00:29 05/31/19 04:53 05/31/19 09:19 Creatine Kinase 34 32 30 Creatine Kinase 4.2 5.3 8.4 Index Creatinine Kinase MB 1.43 1.68 2.51 H (Mass) Troponin I 0.291 *H 0.228 *H 0.195 *H White Blood Count 34.4 H Red Blood Count 3.54 L Hemoglobin 9.3 L Hematocrit 32.9 L Mean Corpuscular 92.9 Volume Mean Corpuscular 26.3 L Hemoglobin Mean Corpuscular 28.3 L Hemoglobin Concent Red Cell 21.0 H Distribution Width Platelet Count 213 # Mean Platelet Volume 11.4 H Immature 1.300 H Granulocytes % Neutrophils % Segmented 49 Neutrophils % (Manual) Band Neutrophils % 19 H (Manual) Lymphocytes % Lymphocytes % 28 (Manual) Monocytes % Monocytes % (Manual) 4 Eosinophils % Basophils % Nucleated Red Blood 0.0 Cells % Immature 0.440 H Granulocytes # Neutrophils # Neutrophils # 19.1 H (Manual) Band Neutrophils # 6.5 H Lymphocytes (Manual) 9.6 H Lymphocytes # Monocytes # Monocytes # (Manual) 1.3 H Eosinophils # Basophils # Nucleated Red Blood Cells # Platelet Estimate NORMAL Giant Platelets 1 H Polychromasia 3+ Poikilocytosis 3+ Anisocytosis 1+ Macrocytosis 1+ Target Cells 1+ Sodium Level 163 *H Potassium Level 4.1 Chloride Level 136 H Carbon Dioxide Level 24 Anion Gap 3 L Blood Urea Nitrogen 71 H Creatinine 1.29 H Est Glomerular Filtrat Rate mL/min Glucose Level 157 Calcium Level 9.3 B-Type Natriuretic 09066 H Peptide Vancomycin Level 11.8 Trough Medications Medications Current Medications Vancomycin HCl (Vanco Iv Per Pharmacy) VANCOMYCIN PER PHARMACY PER PROTOCOL XX ; Start 05/29/19 at 20:00 Cefepime HCl 50 ml @ 100 mls/hr Q12 IVPB Last administered on 05/31/19at 08:50; Admin Dose 100 MLS/HR; Start 05/29/19 at 21:00 Albuterol/ Ipratropium (Duoneb) 3 ml Q6HWA RESP THERAPY HHN Last administered on 05/30/19 20:55; Admin Dose 3 ML; Start 05/29/19 at 20:00 Vancomycin HCl 250 ml @ 125 mls/hr Q24H IVPB Last administered on 05/31/19 10:55; Admin Dose 125 MLS/HR; Start 05/30/19 at 10:00 Acetaminophen (Tylenol Supp) 650 mg Q4H PRN [place] MILD PAIN(1-3) OR TEMP AOBE 99 Last administered on 05/30/19 08:00; Admin Dose 650 MG; Start 05/29/19 at 20:00 Pantoprazole (Protonix Iv) 40 mg DAILY@06 IV Last administered on 05/31/19 05:07; Admin Dose 40 MG; Start 05/30/19 at 06:00 Morphine Sulfate (morphine) 2 mg Q4H PRN IV SEVERE PAIN LEVEL 7-10/sob Last administered on 05/30/19 00:35; Admin Dose 2 MG; Start 05/29/19 at 20:00 Ondansetron HCl (Zofran Inj) 4 mg Q4H PRN IV NAUSEA AND/OR VOMITING; Start 05/29/19 at 20:00 Metoprolol Tartrate (Lopressor) 5 mg Q4H PRN IV HR>110 Hold SBP<100 Last administered on 05/31/19 08:50; Admin Dose 5 MG; Start 05/30/19 at 13:30 Dextrose 1,000 ml @ 50 mls/hr Q20H IV Last administered on 05/31/19 06:48; Admin Dose 50 MLS/HR; Start 05/31/19 at 06:30 Amiodarone HCl 100 ml @ 600 mls/hr ONCE ONCE IV ; Start 05/31/19 at 12:30; Stop 05/31/19 at 12:39; Status UNV Amiodarone HCl 900 mg/Dextrose 500 ml @ 0 mls/hr Q0M IV ; Start 05/31/19 at 12:30; Status UNV JOCE ALBERT May 31, 2019 13:04
[2019-05-31] MEDS ORDERED: FUROSEMIDE 20 MG INJ IV ONE (13:30)
[2019-05-31] MEDS ORDERED: DILTIAZEM 25 MG INJ IV PRN (13:30)
--- NOTE | 2019-05-31 13:44 | CONS ---
Assessment/Plan Assessment/Plan Hospital Course (Demo Recall) Patient is obtunded and hypotensive he is in no distress afebrile with a T-max yesterday 101.6. T-current 98.1 pulse 134 respirations 35 blood pressure 93/60 saturation 98 on 3 L WBC 34.4 platelets 213 bands 19 BUN 71 creatinine 1.29. Troponin 0 0.195 Microbiology: Urine culture grew enterococcus species blood culture on admission grew alphahemolytic strep species MRSA swab was positive Indwelling: Houser peripheral IV Antimicrobials: Vanco cefepime Physical examination this is a chronically ill fragile elderly man who is in no distress head atraumatic normocephalic neck is supple chest rise symmetrical breath sounds diminished bases. Heart: S1-S2. Abdomen soft bowel sounds hypo active extremities without cyanosis Assessment: 1. Severe sepsis with shock 2. Bilateral pneumonia, possibly aspiration 3. Urinary tract infection 4. Atrial fibrillation 5. MRSA nares colonization 6. Acute non-ST elevation FL with ejection fraction of 35% 7. Acute renal failure 8. Acute encephalopathy 9. Dementia 10. Severe aortic stenosis Plan: Patient is doing poorly he is DNR and DNI status, cardiology on case, continue on current antibiotics, add Bactroban to nares Consultation Date/Type/Reason Admit Date/Time May 29, 2019 at 09:16 Initial Consult Date Type of Consult id Requesting Provider: IRA GALINDO MD Date/Time of Note DATE: 05/31/19 TIME: 13:44 Exam/Review of Systems Exam Vitals Vital Signs Date Temp Pulse Resp B/P (MAP) Pulse Ox O2 O2 Flow FiO2 Time Delivery Rate 05/31/19 154 32 93/60 (71) 98 10:00 05/31/19 3.0 08:40 05/31/19 98.1 Nasal 08:00 Cannula Intake and Output 05/30/19 05/30/19 05/31/19 1414:59 22:59 06:59 IntakeIntake Total 650 ml 450 ml 350 ml OutputOutput Total 200 ml 150 ml 300 ml BalanceBalance 450 ml 300 ml 50 ml Results Result Diagram: 05/31/19 0453 05/31/19 0453 Results 24hrs Laboratory Tests Test 05/30/19 19:00 05/31/19 00:29 05/31/19 04:53 05/31/19 09:19 Creatine Kinase 34 32 30 Creatine Kinase 4.2 5.3 8.4 Index Creatinine Kinase MB 1.43 1.68 2.51 H (Mass) Troponin I 0.291 *H 0.228 *H 0.195 *H White Blood Count 34.4 H Red Blood Count 3.54 L Hemoglobin 9.3 L Hematocrit 32.9 L Mean Corpuscular 92.9 Volume Mean Corpuscular 26.3 L Hemoglobin Mean Corpuscular 28.3 L Hemoglobin Concent Red Cell 21.0 H Distribution Width Platelet Count 213 # Mean Platelet Volume 11.4 H Immature 1.300 H Granulocytes % Neutrophils % Segmented 49 Neutrophils % (Manual) Band Neutrophils % 19 H (Manual) Lymphocytes % Lymphocytes % 28 (Manual) Monocytes % Monocytes % (Manual) 4 Eosinophils % Basophils % Nucleated Red Blood 0.0 Cells % Immature 0.440 H Granulocytes # Neutrophils # Neutrophils # 19.1 H (Manual) Band Neutrophils # 6.5 H Lymphocytes (Manual) 9.6 H Lymphocytes # Monocytes # Monocytes # (Manual) 1.3 H Eosinophils # Basophils # Nucleated Red Blood Cells # Platelet Estimate NORMAL Giant Platelets 1 H Polychromasia 3+ Poikilocytosis 3+ Anisocytosis 1+ Macrocytosis 1+ Target Cells 1+ Sodium Level 163 *H Potassium Level 4.1 Chloride Level 136 H Carbon Dioxide Level 24 Anion Gap 3 L Blood Urea Nitrogen 71 H Creatinine 1.29 H Est Glomerular Filtrat Rate mL/min Glucose Level 157 Calcium Level 9.3 B-Type Natriuretic 50947 H Peptide Vancomycin Level 11.8 Trough Medications Medication Current Medications Vancomycin HCl (Vanco Iv Per Pharmacy) VANCOMYCIN PER PHARMACY PER PROTOCOL XX ; Start 05/29/19 at 20:00 Cefepime HCl 50 ml @ 100 mls/hr Q12 IVPB Last administered on 05/31/19at 08:50; Admin Dose 100 MLS/HR; Start 05/29/19 at 21:00 Albuterol/ Ipratropium (Duoneb) 3 ml Q6HWA RESP THERAPY HHN Last administered on 05/30/19at 20:55; Admin Dose 3 ML; Start 05/29/19 at 20:00 Vancomycin HCl 250 ml @ 125 mls/hr Q24H IVPB Last administered on 05/31/19at 10:55; Admin Dose 125 MLS/HR; Start 05/30/19 at 10:00 Acetaminophen (Tylenol Supp) 650 mg Q4H PRN [place] MILD PAIN(1-3) OR TEMP AOBE 99 Last administered on 05/30/19at 08:00; Admin Dose 650 MG; Start 05/29/19 at 20:00 Pantoprazole (Protonix Iv) 40 mg DAILY@06 IV Last administered on 05/31/19at 05:07; Admin Dose 40 MG; Start 05/30/19 at 06:00 Morphine Sulfate (morphine) 2 mg Q4H PRN IV SEVERE PAIN LEVEL 7-10/sob Last administered on 05/30/19at 00:35; Admin Dose 2 MG; Start 05/29/19 at 20:00 Ondansetron HCl (Zofran Inj) 4 mg Q4H PRN IV NAUSEA AND/OR VOMITING; Start 05/29/19 at 20:00 Metoprolol Tartrate (Lopressor) 5 mg Q4H PRN IV HR>110 Hold SBP<100 Last administered on 05/31/19at 08:50; Admin Dose 5 MG; Start 05/30/19 at 13:30 Dextrose 1,000 ml @ 50 mls/hr Q20H IV Last administered on 05/31/19at 06:48; Admin Dose 50 MLS/HR; Start 05/31/19 at 06:30 Amiodarone HCl 900 mg/Dextrose 500 ml @ 0 mls/hr Q0M IV ; Start 05/31/19 at 12:30 Digoxin (Digoxin) 250 mcg ONCE ONCE IV ; Start 05/31/19 at 16:00; Stop 05/31/19 at 16:01 Diltiazem HCl (Cardizem Iv) 5 mg Q4 PRN IV HR>110 Hold SBP<100; Start 05/31/19 at 13:30 LASHAY JO NP May 31, 2019 13:44
--- NOTE | 2019-05-31 20:17 | RADRPT ---
Vent Rate: 104 bpm RR Interval: 580 msec NH Interval: 218 msec QRS Duration: 87 msec QT Interval: 326 msec QTC Interval: 428 msec P-R-T [place]: 81 - 60 - 233 degrees Sinus tachycardia...rate> 99 Prolonged NH interval...NH >215, V-rate 91-120 LVH with secondary repolarization abnormality...multi-LVH criteria, abnrm ST-T Electronically Signed By: Joe Rosenthal
[2019-06-01] MEDS: MUPIROCIN 2% 22 GM OINT TOP SCH ×2 (00:56→09:29)
[2019-06-01] MEDS: CEFEPIME 2GM/50 ML (PMX) 50 ML IVPB SCH ×2 (00:56→09:29)
--- NOTE | 2019-06-01 01:37 | PN ---
DATE: 05/31/2019 SUBJECTIVE: This is day 3 of patient for admission for acute sepsis, acute hypoxemia, acute septic s hock and bilateral pneumonia, possible urinary tract infection also. The patient is an 88-year-old m gualberto who was admitted through paramedics to the emergency room for the reasons mentioned above for acu te respiratory distress, hypoxemia, pneumonia and a fever of 103 to 105 degrees. Today, the patient was again seen today. He is a very ill, cachectic, not responding, only to painful stimuli. He has a mask on with 15% oxygen and does not respond to my questions, only painful stimuli. He looks very ill. Vitals at this time, pulse is 110. His breathing is about 32 per minute. He is on 4 liters of oxygen and blood pressure is 108/46, saturating 93%, unable to review systems today because of the p atient's very poor and nonresponse with history of advanced dementia. PHYSICAL EXAMINATION: HEENT: Head is atraumatic, normocephalic. Pupils are equal and reactive to light. Extraocular musc les are intact. NECK: Supple. No JVD. No surgical scars. No lymph nodes palpable over the neck. CHEST: AP contour is within normal limits. Breasts and nipples are normal, no nipple retraction. HEART: Atrial fibrillation. LUNGS: Scattered rhonchi and crackles over the lungs bilaterally. ABDOMEN: Soft, positive bowel sounds, no hepatosplenomegaly, no masses palpable over the abdomen and no rebound tenderness. EXTREMITIES: No edema, clubbing or cyanosis of the extremities. LABORATORY DATA: Today, sodium is 163, potassium is 4.1, BUN is 71 and creatinine 1.29. Cardiac enz ymes trending down from 0.291 to 0.915. BNP elevated. CBC: White count a little bit better today 3 4,000; still elevated with hemoglobin of 9.3, hematocrit 32.9, platelet count is 213. Chest x-ray showing bilateral pneumonia and mild CHF. ASSESSMENT AND PLAN: Therefore, admitting diagnoses of the patient are acute sepsis, septic shock, s evere sepsis with septic shock, bilateral pneumonia, possibly aspiration pneumonia, urinary tract inf ection, atrial fibrillation and non-ST elevation myocardial infarction with poor ejection fraction, a cute on chronic renal failure, acute encephalopathy, dementia, severe aortic stenosis and adult failu re to thrive. The patient being DNR, the patient was not intubated. I had multiple discussions with the family members who wanted us to continue aggressive treatment on the patient except for intubati on, so at this time we will continue IV antibiotic, breathing treatments, hydration and will follow u p with the results. Dictated By: IRA BERMAN/HARJIT Conf#: [id number] DID#: [id number]
[2019-06-01] MEDS: DEXTROSE 5% 1,000 ML IV SCH (02:31)
[2019-06-01 03:58] VITALS: BP 113/56; PULSE 113; RESP 26
[2019-06-01] MEDS: ACETAMINOPHEN 650 MG SUPP PR PRN (05:00)
[2019-06-01] MEDS: PANTOPRAZOLE 40 MG INJ IV SCH (06:32)
[2019-06-01] MEDS: ALBUTEROL/IPRATROPIUM (NEB) 3 ML AMP HHN SCH ×2 (07:32→14:01)
[2019-06-01 08:23] VITALS: BP 102/50; PULSE 104; RESP 26
[2019-06-01] MEDS: VANCOMYCIN 1 GM 250 ML IVPB SCH (10:35)
--- NOTE | 2019-06-01 10:35 | CONS ---
Assessment/Plan Assessment/Plan Assessment/Plan (Daily) Chest x-ray showing severe bilateral pneumonia. Assessment and recommendations; 1. Patient with history of advanced dementia admitted with severe bilateral pneumonia with severe leukocytosis. Currently on appropriate antimicrobial regimen. 2. Likely underlying renal insufficiency with slight increase in serum creatinine. 3. Severe aortic stenosis. 4. Chronic atrial fibrillation. 5. UTI. With bacteremia as well. Continue current supportive care. Consider adding Cancidas. Obtain follow-up chest x-ray 24 hours. Prognosis appears poor. Consultation Date/Type/Reason Admit Date/Time May 29, 2019 at 09:16 Date of Consultation: Jun 01, 2019 Type of Consult Pulmonary Patient is an 88-year-old male who was admitted because of severe sepsis from residential. Chest x-ray showing bilateral severe pneumonia. Patient apparently has advanced dementia. By the time I saw him, patient is awake but noncommunicative appears tachypneic. On high flow nasal cannula at 40% FiO2 and 40 L/min. History has no pain from medical records. Past medical history; 1. Advanced dementia. 2. History of severe aortic stenosis. 3. History of atrial fibrillation. 4. Cardiomyopathy. Medications; reviewed. Allergies; none. Social history, family history, occupational history is are not available. General exam; elderly male, awake but noncommunicative. Tachypneic. Date/Time of Note DATE: 06/01/19 TIME: 10:30 Past Medical History Home Meds Reported Medications Polyethylene Glycol* (Polyethylene Glycol*) 17 Gm Powd.pack, 17 GM PO DAILY PRN for CONSTIPATION, #30 PACKET 05/29/19 Mineral Oil* (Fleet* Mineral Oil Enema) 133 Ml Oil, 133 ML HI DAILY PRN for CONSTIPATION, ENEMA 05/29/19 Bisacodyl (Biscolax) 10 Mg Supp.rect, 10 MG RC DAILY PRN for CONSTIPATION, SUPP.RECT 05/29/19 Ascorbic Acid* (Vitamin C*) 500 Mg Capsule.sa, 500 MG PO BID, CAP 05/29/19 Potassium Chloride* (KCl*) 40 Meq/30 Ml Soln, 20 MEQ PO DAILY, MEQ 05/29/19 Multivitamin with Minerals (Multiple Vitamin) 1 Each Tablet, 1 EACH PO DAILY, TAB 05/29/19 Pantoprazole* (Pantoprazole*) 40 Mg Tablet.dr, 40 MG PO AC BREAKFAST, TAB 05/29/19 Metoprolol Tartrate* (Lopressor*) 25 Mg Tab, 12.5 MG PO BID, #60 TAB 05/29/19 Furosemide* (Furosemide*) 20 Mg Tablet, 20 MG PO BID, #30 TAB 05/29/19 Polyethylene Glycol* (Polyethylene Glycol*) 17 Gm Powd.pack, 17 GM PO BID, #60 PACKET 05/29/19 Aspirin* (Aspirin* Chew) 81 Mg Tab.chew, 81 MG PO DAILY, TAB.CHEW 05/29/19 Spironolactone* (Aldactone*) 25 Mg Tablet, 25 MG PO DAILY, #30 TAB 05/29/19 Sennosides* (Senna Lax*) 8.6 Mg Tablet, 1 TAB PO DAILY, TAB 05/29/19 Medications Current Medications Vancomycin HCl (Vanco Iv Per Pharmacy) VANCOMYCIN PER PHARMACY PER PROTOCOL XX ; Start 05/29/19 at 20:00 Cefepime HCl 50 ml @ 100 mls/hr Q12 IVPB Last administered on 06/01/19at 09:29; Admin Dose 100 MLS/HR; Start 05/29/19 at 21:00 Albuterol/ Ipratropium (Duoneb) 3 ml Q6HWA RESP THERAPY HHN Last administered on 06/01/19at 07:32; Admin Dose 3 ML; Start 05/29/19 at 20:00 Vancomycin HCl 250 ml @ 125 mls/hr Q24H IVPB Last administered on 05/31/19at 10:55; Admin Dose 125 MLS/HR; Start 05/30/19 at 10:00 Acetaminophen (Tylenol Supp) 650 mg Q4H PRN [place] MILD PAIN(1-3) OR TEMP AOBE 99 Last administered on 06/01/19at 05:00; Admin Dose 650 MG; Start 05/29/19 at 20:00 Pantoprazole (Protonix Iv) 40 mg DAILY@06 IV Last administered on 06/01/19at 06:32; Admin Dose 40 MG; Start 05/30/19 at 06:00 Morphine Sulfate (morphine) 2 mg Q4H PRN IV SEVERE PAIN LEVEL 7-10/sob Last administered on 05/30/19at 00:35; Admin Dose 2 MG; Start 05/29/19 at 20:00 Ondansetron HCl (Zofran Inj) 4 mg Q4H PRN IV NAUSEA AND/OR VOMITING; Start 05/29/19 at 20:00 Metoprolol Tartrate (Lopressor) 5 mg Q4H PRN IV HR>110 Hold SBP<100 Last administered on 05/31/19at 08:50; Admin Dose 5 MG; Start 05/30/19 at 13:30 Dextrose 1,000 ml @ 50 mls/hr Q20H IV Last administered on 06/01/19at 02:31; Admin Dose 50 MLS/HR; Start 05/31/19 at 06:30 Amiodarone HCl 900 mg/Dextrose 500 ml @ 0 mls/hr Q0M IV ; Start 05/31/19 at 12:30 Diltiazem HCl (Cardizem Iv) 5 mg Q4 PRN IV HR>110 Hold SBP<100; Start 05/31/19 at 13:30 Mupirocin (Bactroban) 1 applic BID TOP Last administered on 06/01/19at 09:29; Admin Dose 1 APPLIC; Start 05/31/19 at 21:00 Allergies: Coded Allergies: No Known Allergy (Unverified , 05/29/19) Social History Smoking Status: Unknown if ever smoked Exam/Review of Systems Exam Vitals Vital Signs Date Temp Pulse Resp B/P (MAP) Pulse Ox O2 O2 Flow FiO2 Time Delivery Rate 06/01/19 98.6 104 26 102/50 95 Nasal 08:23 (67) Cannula 06/01/19 40 07:33 05/31/19 4.0 20:00 Intake and Output 05/31/19 05/31/19 06/01/19 1414:59 22:59 06:59 IntakeIntake Total 550 ml 625 ml OutputOutput Total 500 ml 200 ml 200 ml BalanceBalance 50 ml -200 ml 425 ml Exam H ENT exam; supple neck, dry oral mucosa. Patient is edentulous. Nasogastric tube in place. Pupils are small bilaterally. No neck masses. Chest exam; diminished breath sounds throughout. S1-S2 audible, grade 2/6 systolic ejection murmur. Irregular rhythm. Abdomen exam; soft, scaphoid. No organomegaly. Bowel sounds are sluggish. Extremity exam; no peripheral edema. 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 Results Result Diagram: 06/01/1962106/01/19621 Results 24hrs Laboratory Tests Test 05/31/19 21:40 06/01/19 06:22 Blood Gas Specimen Source Blood arterial Arterial Blood Date Drawn 05/31/2019 9:40:28 PM Arterial Blood pH (Temp corrected) 7.375 Arterial Blood pCO2 (Temp correct) 37.7 Arterial Blood pO2 (Temp corrected) 95.3 H Arterial Blood HCO3 21.6 L Arterial Blood Base Excess -3.2 L Arterial Blood Oxygen Saturation 97.1 Dutch Test ACCEPTAB Arterial Blood Gas Puncture Site Right Radial Arterial Blood Carboxyhemoglobin 0.3 Arterial Blood Methemoglobin 0.4 Blood Gas A-a O2 Differential 182.7 H Oxyhemoglobin Percent 96.4 Blood Gas Temperature 37.0 Blood Gas Modality MASK - SIMPLE FiO2 45.0 Blood Gas Notified Whom MA Blood Gas Notified Time 05/31/2019 9:54:03 PM White Blood Count 42.8 #H Red Blood Count 3.56 L Hemoglobin 9.3 L Hematocrit 32.5 L Mean Corpuscular Volume 91.3 Mean Corpuscular Hemoglobin 26.1 L Mean Corpuscular Hemoglobin Concent 28.6 L Red Cell Distribution Width 21.1 H Platelet Count 205 Mean Platelet Volume 11.6 H Immature Granulocytes % 1.400 H Neutrophils % Segmented Neutrophils % (Manual) 71 Band Neutrophils % (Manual) 9 H Lymphocytes % Lymphocytes % (Manual) 19 Monocytes % Monocytes % (Manual) 1 Eosinophils % Basophils % Nucleated Red Blood Cells % 0.0 Immature Granulocytes # 0.620 H Neutrophils # Neutrophils # (Manual) 32.0 H Band Neutrophils # 3.8 H Lymphocytes (Manual) 8.1 H Lymphocytes # Monocytes # Monocytes # (Manual) 0.4 Eosinophils # Basophils # Nucleated Red Blood Cells # Platelet Estimate NORMAL Polychromasia 1+ Hypochromasia 1+ Poikilocytosis 1+ Sodium Level 164 *H Potassium Level 3.8 Chloride Level 134 H Carbon Dioxide Level 24 Anion Gap 6 Blood Urea Nitrogen 70 H Creatinine 1.40 H Est Glomerular Filtrat Rate mL/min Glucose Level 190 Calcium Level 9.5 B-Type Natriuretic Peptide 88698 H Medications Medication Current Medications Vancomycin HCl (Vanco Iv Per Pharmacy) VANCOMYCIN PER PHARMACY PER PROTOCOL XX ; Start 05/29/19 at 20:00 Cefepime HCl 50 ml @ 100 mls/hr Q12 IVPB Last administered on 06/01/19at 09:29; Admin Dose 100 MLS/HR; Start 05/29/19 at 21:00 Albuterol/ Ipratropium (Duoneb) 3 ml Q6HWA RESP THERAPY HHN Last administered on 06/01/19 07:32; Admin Dose 3 ML; Start 05/29/19 at 20:00 Vancomycin HCl 250 ml @ 125 mls/hr Q24H IVPB Last administered on 05/31/19 10:55; Admin Dose 125 MLS/HR; Start 05/30/19 at 10:00 Acetaminophen (Tylenol Supp) 650 mg Q4H PRN [place] MILD PAIN(1-3) OR TEMP AOBE 99 Last administered on 06/01/19 05:00; Admin Dose 650 MG; Start 05/29/19 at 20:00 Pantoprazole (Protonix Iv) 40 mg DAILY@06 IV Last administered on 06/01/19 06:32; Admin Dose 40 MG; Start 05/30/19 at 06:00 Morphine Sulfate (morphine) 2 mg Q4H PRN IV SEVERE PAIN LEVEL 7-10/sob Last administered on 05/30/19at 00:35; Admin Dose 2 MG; Start 05/29/19 at 20:00 Ondansetron HCl (Zofran Inj) 4 mg Q4H PRN IV NAUSEA AND/OR VOMITING; Start 05/29/19 at 20:00 Metoprolol Tartrate (Lopressor) 5 mg Q4H PRN IV HR>110 Hold SBP<100 Last administered on 05/31/19at 08:50; Admin Dose 5 MG; Start 05/30/19 at 13:30 Dextrose 1,000 ml @ 50 mls/hr Q20H IV Last administered on 06/01/19 02:31; Admin Dose 50 MLS/HR; Start 05/31/19 at 06:30 Amiodarone HCl 900 mg/Dextrose 500 ml @ 0 mls/hr Q0M IV ; Start 05/31/19 at 12:30 Diltiazem HCl (Cardizem Iv) 5 mg Q4 PRN IV HR>110 Hold SBP<100; Start 05/31/19 at 13:30 Mupirocin (Bactroban) 1 applic BID TOP Last administered on 06/01/19 09:29; Admin Dose 1 APPLIC; Start 8/15/19 at 21:00 JOSSELIN SEXTON Jun 01, 2019 10:35
[2019-06-01 12:06] VITALS: BP 115/56; PULSE 90; RESP 26
[2019-06-01] MEDS ORDERED: morphine (DRIP) 100 MG/100 ML 100 ML IV SCH (13:30)
--- NOTE | 2019-06-01 13:37 | CONS ---
Assessment/Plan Assessment/Plan Hospital Course (Demo Recall) Patient is obtunded and in no distress WBC 42.8 platelets 205 bands 9 BUN 70 creatinine 1.4 Chest x-ray revealed grossly unchanged patchy parenchymal opacification throughout the lung bases. Microbiology: Urine culture grew enterococcus species blood culture on admission grew alphahemolytic strep species MRSA swab was positive Indwelling: Houser peripheral IV Antimicrobials: Vanco cefepime Physical examination this is a chronically ill fragile elderly man who is in no distress head atraumatic normocephalic neck is supple chest rise symmetrical breath sounds diminished bases. Heart: S1-S2. Abdomen soft bowel sounds hypoactive extremities without cyanosis Assessment: 1. Severe sepsis 2. Bilateral pneumonia, possibly aspiration 3. Urinary tract infection 4. Atrial fibrillation 5. MRSA nares colonization 6. Acute non-ST elevation [place] with ejection fraction of 35% 7. Acute renal failure 8. Acute encephalopathy 9. Dementia 10. Severe aortic stenosis Plan: Patient is doing poorly he is DNR and DNI status, continue on current antibiotics as family wants to continue aggressive medical management Consultation Date/Type/Reason Admit Date/Time May 29, 2019 at 09:16 Initial Consult Date Type of Consult id Requesting Provider: IRA GALINDO MD Date/Time of Note DATE: 06/01/19 TIME: 13:33 Exam/Review of Systems Exam Vitals Vital Signs Date Temp Pulse Resp B/P (MAP) Pulse Ox O2 O2 Flow FiO2 Time Delivery Rate 06/01/19 97.8 90 26 115/56 94 Nasal 12:06 (75) Cannula 06/01/19 40 07:33 05/31/19 4.0 20:00 Intake and Output 05/31/19 05/31/19 06/01/19 1515:00 23:00 07:00 IntakeIntake Total 500 ml 625 ml OutputOutput Total 700 ml 200 ml BalanceBalance -200 ml 425 ml Results Result Diagram: 06/01/1922 06/01/1922 Results 24hrs Laboratory Tests Test 05/31/19 21:40 06/01/19 05:00 06/01/19 06:22 Blood Gas Specimen Source Blood arterial Arterial Blood Date Drawn 05/31/2019 9:40:28 PM Arterial Blood pH 7.375 (Temp corrected) Arterial Blood pCO2 37.7 (Temp correct) Arterial Blood pO2 95.3 H (Temp corrected) Arterial Blood HCO3 21.6 L Arterial Blood Base Excess -3.2 L Arterial Blood 97.1 Oxygen Saturation Dutch Test ACCEPTAB Arterial Blood Gas Right Radial Puncture Site Arterial 0.3 Blood Carboxyhemoglobin Arterial Blood Methemoglobin 0.4 Blood Gas A-a O2 182.7 H Differential Oxyhemoglobin Percent 96.4 Blood Gas Temperature 37.0 Blood Gas Modality MASK - SIMPLE FiO2 45.0 Blood Gas Notified Whom MA Blood Gas Notified Time 05/31/2019 9:54:03 PM Stool Occult Blood POSITIVE White Blood Count 42.8 #H Red Blood Count 3.56 L Hemoglobin 9.3 L Hematocrit 32.5 L Mean Corpuscular Volume 91.3 Mean Corpuscular Hemoglobin 26.1 L Mean Corpuscular 28.6 L Hemoglobin Concent Red Cell Distribution Width 21.1 H Platelet Count 205 Mean Platelet Volume 11.6 H Immature Granulocytes % 1.400 H Neutrophils % Segmented Neutrophils 71 % (Manual) Band Neutrophils % (Manual) 9 H Lymphocytes % Lymphocytes % (Manual) 19 Monocytes % Monocytes % (Manual) 1 Eosinophils % Basophils % Nucleated Red Blood Cells % 0.0 Immature Granulocytes # 0.620 H Neutrophils # Neutrophils # (Manual) 32.0 H Band Neutrophils # 3.8 H Lymphocytes (Manual) 8.1 H Lymphocytes # Monocytes # Monocytes # (Manual) 0.4 Eosinophils # Basophils # Nucleated Red Blood Cells # Platelet Estimate NORMAL Polychromasia 1+ Hypochromasia 1+ Poikilocytosis 1+ Sodium Level 164 *H Potassium Level 3.8 Chloride Level 134 H Carbon Dioxide Level 24 Anion Gap 6 Blood Urea Nitrogen 70 H Creatinine 1.40 H Est Glomerular Filtrat Rate mL/min Glucose Level 190 Calcium Level 9.5 B-Type Natriuretic Peptide 51735 H Medications Medication Current Medications Vancomycin HCl (Vanco Iv Per Pharmacy) VANCOMYCIN PER PHARMACY PER PROTOCOL XX ; Start 05/29/19 at 20:00 Cefepime HCl 50 ml @ 100 mls/hr Q12 IVPB Last administered on 06/01/19at 09:29; Admin Dose 100 MLS/HR; Start 05/29/19 at 21:00 Albuterol/ Ipratropium (Duoneb) 3 ml Q6HWA RESP THERAPY HHN Last administered on 06/01/19at 07:32; Admin Dose 3 ML; Start 05/29/19 at 20:00 Vancomycin HCl 250 ml @ 125 mls/hr Q24H IVPB Last administered on 06/01/19 10:35; Admin Dose 125 MLS/HR; Start 05/30/19 at 10:00 Acetaminophen (Tylenol Supp) 650 mg Q4H PRN [place] MILD PAIN(1-3) OR TEMP AOBE 99 Last administered on 06/01/19 05:00; Admin Dose 650 MG; Start 05/29/19 at 20:00 Pantoprazole (Protonix Iv) 40 mg DAILY@06 IV Last administered on 06/01/19at 06:32; Admin Dose 40 MG; Start 05/30/19 at 06:00 Morphine Sulfate (morphine) 2 mg Q4H PRN IV SEVERE PAIN LEVEL 7-10/sob Last administered on 05/30/19 00:35; Admin Dose 2 MG; Start 05/29/19 at 20:00 Ondansetron HCl (Zofran Inj) 4 mg Q4H PRN IV NAUSEA AND/OR VOMITING; Start 05/29/19 at 20:00 Metoprolol Tartrate (Lopressor) 5 mg Q4H PRN IV HR>110 Hold SBP<100 Last administered on 05/31/19at 08:50; Admin Dose 5 MG; Start 05/30/19 at 13:30 Dextrose 1,000 ml @ 50 mls/hr Q20H IV Last administered on 06/01/19at 02:31; Admin Dose 50 MLS/HR; Start 05/31/19 at 06:30 Amiodarone HCl 900 mg/Dextrose 500 ml @ 0 mls/hr Q0M IV ; Start 05/31/19 at 12:30 Diltiazem HCl (Cardizem Iv) 5 mg Q4 PRN IV HR>110 Hold SBP<100; Start 05/31/19 at 13:30 Mupirocin (Bactroban) 1 applic BID TOP Last administered on 06/01/19at 09:29; Admin Dose 1 APPLIC; Start 05/31/19 at 21:00 Morphine Sulfate/ Sodium Chloride 100 ml @ 1 mls/hr TITRATE IV ; Start 06/01/19 at 13:30 LASHAY JO NP Jun 01, 2019 13:37
--- NOTE | 2019-06-01 14:14 | CONS ---
Assessment/Plan Assessment/Plan Hospital Course (Demo Recall) IMPRESSION: 1. Tachycardia at this time consistent with sinus tachycardia- This am c/w AF-now in S tach today 2. Abnormal electrocardiogram, diffuse nonspecific ST and T-wave abnormalities, assess for acute coronary syndrome.- no significant uotrend 3. Positive troponins in the setting of renal failure likely type 2 demand infarct. Continue to assess. 4. Bacteremia. Blood cultures are positive from 05/29/2019. 5. Anemia. 6. Leukocytosis, severe. 7. Renal failure. 8. Hypernatremia. 9. Elevated BNP. 10. Coagulopathy. 11. Urinary tract infection. 12. hypernatremia-severe 14. -severe by echo this admit 15. cardiomyopathy-EF 35% by echo this admit Recc: -Tele -serial ecg's -Continue abx's and f/u cx data -Consider amio to [facility] as possibl/able to take -free water for elevated na -recheck INR and see if there is need for systemic anticoag -continue IVP BB as tolerated -start gentle lasix diuresis as tolerated -poor prognosis Consultation Date/Type/Reason Admit Date/Time May 29, 2019 at 09:16 Initial Consult Date 05/30/19 Type of Consult Cardiology Reason for Consultation AF/ Requesting Provider: IRA GALINDO MD Date/Time of Note DATE: 06/01/19 TIME: 14:09 Exam/Review of Systems Vital Signs Vitals Vital Signs Date Temp Pulse Resp B/P (MAP) Pulse Ox O2 O2 Flow FiO2 Time Delivery Rate 06/01/19 100 40 14:01 06/01/19 103 38 14:01 06/01/19 97.8 115/56 Nasal 12:06 (75) Cannula 05/31/19 4.0 20:00 Intake and Output 05/31/19 05/31/19 06/01/19 1414:59 22:59 06:59 IntakeIntake Total 550 ml 625 ml OutputOutput Total 500 ml 200 ml 200 ml BalanceBalance 50 ml -200 ml 425 ml Exam Exam Review of Systems: CONSTITUTIONAL: No fevers, chills. PULMONARY:resp distress CARDIOVASCULAR: No obvious chest pain GASTROINTESTINAL: No nausea/vomiting. GENITOURINARY: No hematuria/dysuria. MUSCULOSKELETAL: No myagias/arthalgias. PSYCHIATRIC: The patient denies depression. NEUROLOGIC: non-communicative Constitutional: alert Psych: no complaints Head: normocephalic ENMT: mucosa pink and moist Neck: supple, jvd (9 cm water) Respiratory: diminished breath sounds (at bases/B) Cardiovascular: regular rate and rhythm Gastrointestinal: soft, non-tender Musculoskeletal: muscle weakness (generalized) Extremities: edema (none) Neurological: lethargic Labs Result Diagram: 06/01/19 0622 06/01/19 0622 Results 24hrs Laboratory Tests Test 05/31/19 21:40 06/01/19 05:00 06/01/19 06:22 Blood Gas Specimen Source Blood arterial Arterial Blood Date Drawn 05/31/2019 9:40:28 PM Arterial Blood pH 7.375 (Temp corrected) Arterial Blood pCO2 37.7 (Temp correct) Arterial Blood pO2 95.3 H (Temp corrected) Arterial Blood HCO3 21.6 L Arterial Blood Base Excess -3.2 L Arterial Blood 97.1 Oxygen Saturation Dutch Test ACCEPTAB Arterial Blood Gas Right Radial Puncture Site Arterial 0.3 Blood Carboxyhemoglobin Arterial Blood Methemoglobin 0.4 Blood Gas A-a O2 182.7 H Differential Oxyhemoglobin Percent 96.4 Blood Gas Temperature 37.0 Blood Gas Modality MASK - SIMPLE FiO2 45.0 Blood Gas Notified Whom MA Blood Gas Notified Time 05/31/2019 9:54:03 PM Stool Occult Blood POSITIVE White Blood Count 42.8 #H Red Blood Count 3.56 L Hemoglobin 9.3 L Hematocrit 32.5 L Mean Corpuscular Volume 91.3 Mean Corpuscular Hemoglobin 26.1 L Mean Corpuscular 28.6 L Hemoglobin Concent Red Cell Distribution Width 21.1 H Platelet Count 205 Mean Platelet Volume 11.6 H Immature Granulocytes % 1.400 H Neutrophils % Segmented Neutrophils 71 % (Manual) Band Neutrophils % (Manual) 9 H Lymphocytes % Lymphocytes % (Manual) 19 Monocytes % Monocytes % (Manual) 1 Eosinophils % Basophils % Nucleated Red Blood Cells % 0.0 Immature Granulocytes # 0.620 H Neutrophils # Neutrophils # (Manual) 32.0 H Band Neutrophils # 3.8 H Lymphocytes (Manual) 8.1 H Lymphocytes # Monocytes # Monocytes # (Manual) 0.4 Eosinophils # Basophils # Nucleated Red Blood Cells # Platelet Estimate NORMAL Polychromasia 1+ Hypochromasia 1+ Poikilocytosis 1+ Sodium Level 164 *H Potassium Level 3.8 Chloride Level 134 H Carbon Dioxide Level 24 Anion Gap 6 Blood Urea Nitrogen 70 H Creatinine 1.40 H Est Glomerular Filtrat Rate mL/min Glucose Level 190 Calcium Level 9.5 B-Type Natriuretic Peptide 84780 H Medications Medications Current Medications Vancomycin HCl (Vanco Iv Per Pharmacy) VANCOMYCIN PER PHARMACY PER PROTOCOL XX ; Start 05/29/19 at 20:00 Cefepime HCl 50 ml @ 100 mls/hr Q12 IVPB Last administered on 06/01/19 09:29; Admin Dose 100 MLS/HR; Start 05/29/19 at 21:00 Albuterol/ Ipratropium (Duoneb) 3 ml Q6HWA RESP THERAPY HHN Last administered on 06/01/19 14:01; Admin Dose 3 ML; Start 05/29/19 at 20:00 Vancomycin HCl 250 ml @ 125 mls/hr Q24H IVPB Last administered on 06/01/19 10:35; Admin Dose 125 MLS/HR; Start 05/30/19 at 10:00 Acetaminophen (Tylenol Supp) 650 mg Q4H PRN [place] MILD PAIN(1-3) OR TEMP AOBE 99 Last administered on 06/01/19 05:00; Admin Dose 650 MG; Start 05/29/19 at 20:00 Pantoprazole (Protonix Iv) 40 mg DAILY@06 IV Last administered on 06/01/19 06:32; Admin Dose 40 MG; Start 05/30/19 at 06:00 Morphine Sulfate (morphine) 2 mg Q4H PRN IV SEVERE PAIN LEVEL 7-10/sob Last administered on 05/30/19 00:35; Admin Dose 2 MG; Start 05/29/19 at 20:00 Ondansetron HCl (Zofran Inj) 4 mg Q4H PRN IV NAUSEA AND/OR VOMITING; Start 05/29/19 at 20:00 Metoprolol Tartrate (Lopressor) 5 mg Q4H PRN IV HR>110 Hold SBP<100 Last administered on 05/31/19 08:50; Admin Dose 5 MG; Start 05/30/19 at 13:30 Dextrose 1,000 ml @ 50 mls/hr Q20H IV Last administered on 06/01/19 02:31; Admin Dose 50 MLS/HR; Start 05/31/19 at 06:30 Amiodarone HCl 900 mg/Dextrose 500 ml @ 0 mls/hr Q0M IV ; Start 05/31/19 at 12:30 Diltiazem HCl (Cardizem Iv) 5 mg Q4 PRN IV HR>110 Hold SBP<100; Start 05/31/19 at 13:30 Mupirocin (Bactroban) 1 applic BID TOP Last administered on 06/01/19at 09:29; Admin Dose 1 APPLIC; Start 05/31/19 at 21:00 Morphine Sulfate/ Sodium Chloride 100 ml @ 1 mls/hr TITRATE IV ; Start 06/01/19 at 13:30 JOCE ALBERT Jun 01, 2019 14:14
[2019-06-01] MEDS ORDERED: FUROSEMIDE 20 MG INJ IV ONE (14:30)
[2019-06-01 15:55] VITALS: BP 112/57; PULSE 116; RESP 24
--- NOTE | 2019-06-01 16:04 | RADRPT ---
Vent Rate: 121 bpm RR Interval: 496 msec IA Interval: 158 msec QRS Duration: 91 msec QT Interval: 309 msec QTC Interval: 439 msec P-R-T [place]: 70 - 47 - 216 degrees Sinus tachycardia...rate> 99 LVH with secondary repolarization abnormality...multi-LVH criteria, abnrm ST-T Anterior ST elevation, probably due to LVH...ST >0.20 mV in V1-V4 & LVH Electronically Signed By: Joe Rosenthal
--- NOTE | 2019-06-01 17:23 | PN ---
DATE: 06/01/2019 SUBJECTIVE: An 88-year-old male who was admitted for acute septic shock, hypotension, hypoxemia with elevated temperatures of 103 to 109. The patient is a patient with advanced disease process with hi story of atherosclerotic vascular disease, hypertension, degenerative joint disease, dysphagia, advan leni Alzheimer's disease and dyslipidemia and is a [facility] resident. The patient was transferred upon acute respiratory distress. The patient is a DNR patient. Upon his request, he did not want a [place] heroic measures to be done on him. He was started on IV antibiotic treatment, IV hydration. I co nsulted with ID specialist, application design engineer and learning consultant. The patient today is not doing well. He spiked a fever again to 103. PHYSICAL EXAMINATION: VITAL SIGNS: Today, blood pressure is 115/56, heart rate is 104 and temperature after rectal Tylenol was 97.8. He has FiO2 of 40% on nasal cannula. GENERAL: The patient is diaphoretic, unresponsive and in distress, grasping for air with oxygen on. HEENT: Atraumatic, normocephalic. Pupils are equal and reactive to light. Extraocular muscles are intact. NECK: Supple. No JVD, no surgical scars, no lymph nodes palpable over the neck. CHEST: AP contour is deformed. LUNGS: Inspiratory and expiratory wheezes over the lungs. Scattered rhonchi and crackly. ABDOMEN: Soft, positive bowel sounds. No hepatosplenomegaly, no masses palpable over the abdomen an d no rebound tenderness. EXTREMITIES: No edema, clubbing or cyanosis of the extremities. LABORATORY DATA: Today's labs are worsening than yesterday. White count is 42,000, hemoglobin 9.3, hematocrit 32.5 and platelet count is 205. Chemistry: Sodium is 164, potassium is 3.8, BUN is 70, c reatinine is 1.4. Elevated BNP. Troponin has decreased. DIAGNOSTIC DATA: Chest x-ray shows low lung volumes with patchy parenchymal opacification through th e lung bases and NG tube in place. ADMITTING DIAGNOSES: 1. Acute septic shock. 2. Hypoxemia. 3. Respiratory distress. 4. Hyperthermia. 5. Advanced Alzheimer's dementia. 6. Acute on chronic kidney disease. 7. Dyslipidemia. I had a long discussion with brother's son who is responsible libertarian for the patient. I had long disc ussions twice and they decided as the patient had himself signed DNR/DNI and the patient's situation is not improving, they decided that they want the patient to be on comfort measures and would be an [facility] hosp[facility] and they are okay with that; therefore, I ordered for in-house consultation for hospi ce and started him on morphine drip for comfort measures. Dictated By: IRA GALINDO MD SB/NTS Conf#: [id number] DID#: [id number] CC: JOCE ALBERT MD;*EndCC*
[2019-06-01 20:22] VITALS: BP 117/56; PULSE 133; RESP 22
[2019-06-02 00:31] VITALS: BP 97/47; PULSE 114; RESP 28
[2019-06-02 02:30] VITALS: BP 95/49; PULSE 113; RESP 23
[2019-06-02 07:48] VITALS: BP 107/53; PULSE 115; RESP 20
[2019-06-02] MEDS ORDERED: FUROSEMIDE 20 MG INJ IV SCH (09:00)
[2019-06-02] MEDS ORDERED: ARTIFICIAL TEARS 15 ML OPH BOTH EYES PRN (10:30)
[2019-06-02] MEDS ORDERED: ATROPINE 1% 5 ML OPH SL PRN (10:30)
[2019-06-02] MEDS ORDERED: ALBUTEROL/IPRATROPIUM (NEB) 3 ML AMP HHN PRN (10:30)
[2019-06-02] MEDS ORDERED: DIMETHICONE STICK TOP PRN (10:30)
[2019-06-02] MEDS ORDERED: BISACODYL 10 MG SUPP PR PRN (10:30)
[2019-06-02] MEDS ORDERED: ONDANSETRON 4 MG INJ IV PRN (10:30)
[2019-06-02] MEDS ORDERED: ACETAMINOPHEN 650 MG SUPP PR PRN (10:30)
[2019-06-02] MEDS ORDERED: LORAZEPAM 2 MG INJ IV PRN (10:30)
[2019-06-02] MEDS ORDERED: SCOPOLAMINE 1.5 MG PATCH TRANSDERM SCH (11:00)
[2019-06-02] MEDS ORDERED: morphine (DRIP) 100 MG/100 ML 100 ML IV SCH ×2 (11:00→12:00)
--- NOTE | 2019-06-02 11:08 | CONS ---
Assessment/Plan Assessment/Plan Hospital Course (Demo Recall) IMPRESSION: 1. Tachycardia at this time consistent with sinus tachycardia- This am c/w AF-now in S tach today 2. Abnormal electrocardiogram, diffuse nonspecific ST and T-wave abnormalities, assess for acute coronary syndrome.- no significant uotrend 3. Positive troponins in the setting of renal failure likely type 2 demand infarct. Continue to assess. 4. Bacteremia. Blood cultures are positive from 05/29/2019. 5. Anemia. 6. Leukocytosis, severe. 7. Renal failure. 8. Hypernatremia. 9. Elevated BNP. 10. Coagulopathy. 11. Urinary tract infection. 12. hypernatremia-severe 14. -severe by echo this admit 15. 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 -will sign off Consultation Date/Type/Reason Admit Date/Time May 29, 2019 at 09:16 Initial Consult Date 05/30/19 Type of Consult Cardiology Reason for Consultation tachycardia/CHF Requesting Provider: IRA GALINDO MD Date/Time of Note DATE: 06/02/19 TIME: 11:06 Exam/Review of Systems Vital Signs Vitals Vital Signs Date Temp Pulse Resp B/P (MAP) Pulse Ox O2 O2 Flow FiO2 Time Delivery Rate 06/02/19 98.3 115 20 107/53 98 07:48 (71) 06/02/19 Nasal 100 05:07 Cannula 05/31/19 4.0 20:00 Intake and Output 06/01/19 06/01/19 06/02/19 1515:00 23:00 07:00 IntakeIntake Total 14 ml OutputOutput Total 200 ml BalanceBalance -186 ml Exam Exam Review of Systems: CONSTITUTIONAL: No fevers, chills. PULMONARY: No sob CARDIOVASCULAR: No chest pain/palpitations GASTROINTESTINAL: No nausea/vomiting. GENITOURINARY: No hematuria/dysuria. MUSCULOSKELETAL: No myagias/arthalgias. PSYCHIATRIC: The patient denies depression. NEUROLOGIC: lethargic nonconversant Constitutional: other (sleeping) Psych: no complaints Head: normocephalic ENMT: mucosa pink and moist Neck: supple, jvd (9 cm water) Respiratory: diminished breath sounds (at bases/B) Cardiovascular: regular rate and rhythm Gastrointestinal: soft, non-tender Musculoskeletal: muscle weakness (generalized) Extremities: edema (none) Neurological: lethargic Labs Result Diagram: 06/02/19 0541 06/02/19 0541 Results 24hrs Laboratory Tests Test 06/01/19 16:01 06/02/19 05:41 Prothrombin Time 19.0 H Prothrombin Time Ratio 1.5 INR International Normalized Ratio 1.58 White Blood Count 39.3 H Red Blood Count 3.74 L Hemoglobin 9.6 L Hematocrit 34.6 L Mean Corpuscular Volume 92.5 Mean Corpuscular Hemoglobin 25.7 L Mean Corpuscular Hemoglobin Concent 27.7 L Red Cell Distribution Width 21.2 H Platelet Count 183 Mean Platelet Volume 11.5 H Immature Granulocytes % 1.600 H Neutrophils % Segmented Neutrophils % (Manual) 56 Band Neutrophils % (Manual) 11 H Lymphocytes % Lymphocytes % (Manual) 29 Monocytes % Monocytes % (Manual) 4 Eosinophils % Basophils % Nucleated Red Blood Cells % 0.1 H Immature Granulocytes # 0.640 H Neutrophils # Neutrophils # (Manual) 23.7 H Band Neutrophils # 4.3 H Lymphocytes (Manual) 11.3 H Lymphocytes # Monocytes # Monocytes # (Manual) 1.5 H Eosinophils # Basophils # Nucleated Red Blood Cells # Platelet Estimate NORMAL Giant Platelets 1 H Polychromasia 3+ Poikilocytosis 3+ Anisocytosis 1+ Target Cells 1+ Ovalocytes 1+ Sodium Level 171 *H Potassium Level 4.4 Chloride Level 139 H Carbon Dioxide Level 26 Anion Gap 6 Blood Urea Nitrogen 81 H Creatinine 2.12 H Est Glomerular Filtrat Rate mL/min Glucose Level 139 # Calcium Level 9.5 B-Type Natriuretic Peptide 81399 H Medications Medications Current Medications Albuterol/ Ipratropium (Duoneb) 3 ml Q4H RESP THERAPY PRN HHN SHORTNESS OF BREATH; Start 06/02/19 at 10:30 Morphine Sulfate/ Sodium Chloride 100 ml @ 2 mls/hr TITRATE IV ; Start 06/02/19 at 11:00 Lorazepam (Ativan) 1 mg Q4H PRN IV ANXIETY/SEIZURES; Start 06/02/19 at 10:30 Ondansetron HCl (Zofran Inj) 4 mg Q6H PRN IV NAUSEA AND/OR VOMITING; Start 06/02/19 at 10:30 Scopolamine (Transderm-Scop) 1 patch Q72H TRANSDERM ; Start 06/02/19 at 11:00 Atropine Sulfate (Atropine 1% Oph) 2 drop Q4H PRN SL TERMINAL CONGESTION; Start 06/02/19 at 10:30 Eye Lubricant (Artificial Tears Oph) 2 drop EACH SHIFT PRN BOTH EYES DRY EYES; Start 06/02/19 at 10:30 Dimethicone (Blistex Lip [place]) 1 applic EACH SHIFT PRN TOP DRY LIP(S); Start 06/02/19 at 10:30 Acetaminophen (Tylenol Supp) 650 mg Q4H PRN [place] MILD PAIN(1-3) OR TEMP>38C; Start 06/02/19 at 10:30 Bisacodyl (Dulcolax Supp) 10 mg DAILY PRN [place] CONSTIPATION; Start 06/02/19 at 10:30 JOCE ALBERT Jun 02, 2019 11:08
--- NOTE | 2019-06-02 16:07 | CONS ---
Consult Date/Type/Reason Admit Date/Time May 29, 2019 at 09:16 Initial Consult Date 06/01/19 Type of Consultation: Pulm Requesting Provider: IRA GALINDO MD Date/Time of Note DATE: 06/02/19 TIME: 16:06 Subjective Events noted. Patient made comfort care. Objective Vitals Vital Signs Date Temp Pulse Resp B/P (MAP) Pulse Ox O2 O2 Flow FiO2 Time Delivery Rate 06/02/19 98.3 115 20 107/53 98 07:48 (71) 06/02/19 Nasal 100 05:07 Cannula 05/31/19 4.0 20:00 Intake and Output 06/01/19 06/01/19 06/02/19 1515:00 23:00 07:00 IntakeIntake Total 14 ml OutputOutput Total 200 ml BalanceBalance -186 ml Exam HEENT: Neck supple; no JVD; no LAD CVS: Irreg tach, S1 and S2 CHEST: Coarse rhonchi ABD: Soft, NT, + BS EXT: No c/c/e Results/Medications Result Diagram: 06/02/19 0541 06/02/19 0541 Results 24 hrs Laboratory Tests Test 06/02/19 05:41 White Blood Count 39.3 H Red Blood Count 3.74 L Hemoglobin 9.6 L Hematocrit 34.6 L Mean Corpuscular Volume 92.5 Mean Corpuscular Hemoglobin 25.7 L Mean Corpuscular Hemoglobin Concent 27.7 L Red Cell Distribution Width 21.2 H Platelet Count 183 Mean Platelet Volume 11.5 H Immature Granulocytes % 1.600 H Neutrophils % Segmented Neutrophils % (Manual) 56 Band Neutrophils % (Manual) 11 H Lymphocytes % Lymphocytes % (Manual) 29 Monocytes % Monocytes % (Manual) 4 Eosinophils % Basophils % Nucleated Red Blood Cells % 0.1 H Immature Granulocytes # 0.640 H Neutrophils # Neutrophils # (Manual) 23.7 H Band Neutrophils # 4.3 H Lymphocytes (Manual) 11.3 H Lymphocytes # Monocytes # Monocytes # (Manual) 1.5 H Eosinophils # Basophils # Nucleated Red Blood Cells # Platelet Estimate NORMAL Giant Platelets 1 H Polychromasia 3+ Poikilocytosis 3+ Anisocytosis 1+ Target Cells 1+ Ovalocytes 1+ Sodium Level 171 *H Potassium Level 4.4 Chloride Level 139 H Carbon Dioxide Level 26 Anion Gap 6 Blood Urea Nitrogen 81 H Creatinine 2.12 H Est Glomerular Filtrat Rate mL/min Glucose Level 139 # Calcium Level 9.5 B-Type Natriuretic Peptide 48368 H Home Meds Reported Medications Polyethylene Glycol* (Polyethylene Glycol*) 17 Gm Powd.pack, 17 GM PO DAILY PRN for CONSTIPATION, #30 PACKET 05/29/19 Mineral Oil* (Fleet* Mineral Oil Enema) 133 Ml Oil, 133 ML [place] DAILY PRN for CONSTIPATION, ENEMA 05/29/19 Bisacodyl (Biscolax) 10 Mg Supp.rect, 10 MG RC DAILY PRN for CONSTIPATION, SUPP.RECT 05/29/19 Ascorbic Acid* (Vitamin C*) 500 Mg Capsule.sa, 500 MG PO BID, CAP 05/29/19 Potassium Chloride* (KCl*) 40 Meq/30 Ml Soln, 20 MEQ PO DAILY, MEQ 05/29/19 Multivitamin with Minerals (Multiple Vitamin) 1 Each Tablet, 1 EACH PO DAILY, TAB 05/29/19 Pantoprazole* (Pantoprazole*) 40 Mg Tablet.dr, 40 MG PO AC BREAKFAST, TAB 05/29/19 Metoprolol Tartrate* (Lopressor*) 25 Mg Tab, 12.5 MG PO BID, #60 TAB 05/29/19 Furosemide* (Furosemide*) 20 Mg Tablet, 20 MG PO BID, #30 TAB 05/29/19 Polyethylene Glycol* (Polyethylene Glycol*) 17 Gm Powd.pack, 17 GM PO BID, #60 PACKET 05/29/19 Aspirin* (Aspirin* Chew) 81 Mg Tab.chew, 81 MG PO DAILY, TAB.CHEW 05/29/19 Spironolactone* (Aldactone*) 25 Mg Tablet, 25 MG PO DAILY, #30 TAB 05/29/19 Sennosides* (Senna Lax*) 8.6 Mg Tablet, 1 TAB PO DAILY, TAB 05/29/19 Medications Current Medications Albuterol/ Ipratropium (Duoneb) 3 ml Q4H RESP THERAPY PRN HHN SHORTNESS OF BREATH; Start 06/02/19 at 10:30 Lorazepam (Ativan) 1 mg Q4H PRN IV ANXIETY/SEIZURES; Start 06/02/19 at 10:30 Ondansetron HCl (Zofran Inj) 4 mg Q6H PRN IV NAUSEA AND/OR VOMITING; Start 06/02/19 at 10:30 Scopolamine (Transderm-Scop) 1 patch Q72H TRANSDERM Last administered on 06/02/19at 11:59; Admin Dose 1 PATCH; Start 06/02/19 at 11:00 Atropine Sulfate (Atropine 1% Oph) 2 drop Q4H PRN SL TERMINAL CONGESTION; Start 06/02/19 at 10:30 Eye Lubricant (Artificial Tears Oph) 2 drop EACH SHIFT PRN BOTH EYES DRY EYES Last administered on 06/02/19at 12:00; Admin Dose 2 DROP; Start 06/02/19 at 10:30 Dimethicone (Blistex Lip [place]) 1 applic EACH SHIFT PRN TOP DRY LIP(S) Last administered on 06/02/19at 12:01; Admin Dose 1 APPLIC; Start 06/02/19 at 10:30 Acetaminophen (Tylenol Supp) 650 mg Q4H PRN [place] MILD PAIN(1-3) OR TEMP>38C; Start 06/02/19 at 10:30 Bisacodyl (Dulcolax Supp) 10 mg DAILY PRN [place] CONSTIPATION; Start 06/02/19 at 10:30 Morphine Sulfate/ Sodium Chloride 100 ml @ 2 mls/hr TITRATE IV Last administered on 06/02/19at 12:12; Admin Dose 2 MLS/HR; Start 06/02/19 at 12:00 Assessment/Plan Assessment/Plan (Daily) Agree with transition to comfort measures Will sign off SALINA JANE MD Jun 02, 2019 16:07
--- NOTE | 2019-06-02 18:47 | CONS ---
Assessment/Plan Assessment/Plan Hospital Course (Demo Recall) ID PROGRESS NOTE CURRENT ABX: DAY #=> ABX DC'D 24H INTERVAL SUMMARY * Patient is resting w/eyes closed appears comfortable -- supplemental O2 via 2L NC * CHART REVIEWDED == ABX DC'D appears family opting in for comfort measures MICRO/OTHER * 05/30/19 (+)MRSA * 05/29/19 Urine Cx (+) URINE CULTURE Final Organism 1 ENTEROCOCCUS SPECIES COLONY COUNT 20,000 - 30,000 CFU/ml * 05/29/19 BCx (+) 1/2 bottles ALPHA HEMOLYTIC STREP SPP IDENTIFIED STREPTOCOCCUS PARASANGUINIS ALPHA HEMO M.I.C. RX --------- --- CEFOTAXIME 0.38 S PENICILLIN 0.125 S VANCOMYCIN <=0.5 S ALPHA HEMO Zone Size RX --------- --- * CLINDAMYCIN S * ERYTHROMYCIN R IMAGING * 06/04 CXR: PHYSICAL EXAMINATION: GENERAL: VSS, NAD -- frail elderly M HEENT: AT, NC, supplemental O2 via 2L NC NECK: Supple CHEST: Equal chest rise bilaterally without dyspnea on observation HEART: Deferred ABDOMEN: Deferred EXTREMITIES: Deferred SKIN: No rash, no diaphoresis ID ASSESSMENT 88 yo M admit with: 1. Severe sepsis 2. Bilateral pneumonia, possibly aspiration 3. Urinary tract infection 4. Atrial fibrillation 5. MRSA nares colonization 6. Acute non-ST elevation ID with ejection fraction of 35% 7. Acute renal failure 8. Acute encephalopathy 9. Dementia 10. Severe aortic stenosis ABX ALLERGIES: KNDA INVASIVES: PIV CURRENT ABX: DAY #=> OFF ABX S/P Vanco IV + Cefepime ID RECOMMENDATIONS/PLAN: 1. CHART REVIEWDED == ABX DC'D appears family opting in for comfort measures * Thank you for the privilege of ID consultation referral -- Will sign off . Consultation Date/Type/Reason Admit Date/Time May 29, 2019 at 09:16 Initial Consult Date 06/01/19 Requesting Provider: IRA GALINDO MD Date/Time of Note DATE: 06/02/19 TIME: 18:47 Exam/Review of Systems Exam Vitals Vital Signs Date Temp Pulse Resp B/P (MAP) Pulse Ox O2 O2 Flow FiO2 Time Delivery Rate 06/02/19 98.3 115 20 107/53 98 07:48 (71) 06/02/19 Nasal 100 05:07 Cannula 05/31/19 4.0 20:00 Intake and Output 06/01/19 06/01/19 06/02/19 1515:00 23:00 07:00 IntakeIntake Total 14 ml OutputOutput Total 200 ml BalanceBalance -186 ml Results Result Diagram: 06/02/19 0541 06/02/19 0541 Results 24hrs Laboratory Tests Test 06/02/19 05:41 White Blood Count 39.3 H Red Blood Count 3.74 L Hemoglobin 9.6 L Hematocrit 34.6 L Mean Corpuscular Volume 92.5 Mean Corpuscular Hemoglobin 25.7 L Mean Corpuscular Hemoglobin Concent 27.7 L Red Cell Distribution Width 21.2 H Platelet Count 183 Mean Platelet Volume 11.5 H Immature Granulocytes % 1.600 H Neutrophils % Segmented Neutrophils % (Manual) 56 Band Neutrophils % (Manual) 11 H Lymphocytes % Lymphocytes % (Manual) 29 Monocytes % Monocytes % (Manual) 4 Eosinophils % Basophils % Nucleated Red Blood Cells % 0.1 H Immature Granulocytes # 0.640 H Neutrophils # Neutrophils # (Manual) 23.7 H Band Neutrophils # 4.3 H Lymphocytes (Manual) 11.3 H Lymphocytes # Monocytes # Monocytes # (Manual) 1.5 H Eosinophils # Basophils # Nucleated Red Blood Cells # Platelet Estimate NORMAL Giant Platelets 1 H Polychromasia 3+ Poikilocytosis 3+ Anisocytosis 1+ Target Cells 1+ Ovalocytes 1+ Sodium Level 171 *H Potassium Level 4.4 Chloride Level 139 H Carbon Dioxide Level 26 Anion Gap 6 Blood Urea Nitrogen 81 H Creatinine 2.12 H Est Glomerular Filtrat Rate mL/min Glucose Level 139 # Calcium Level 9.5 B-Type Natriuretic Peptide 18605 H Medications Medication Current Medications Albuterol/ Ipratropium (Duoneb) 3 ml Q4H RESP THERAPY PRN HHN SHORTNESS OF BREATH Last administered on 06/02/19at 17:34; Admin Dose 3 ML; Start 06/02/19 at 10:30 Lorazepam (Ativan) 1 mg Q4H PRN IV ANXIETY/SEIZURES; Start 06/02/19 at 10:30 Ondansetron HCl (Zofran Inj) 4 mg Q6H PRN IV NAUSEA AND/OR VOMITING; Start 06/02/19 at 10:30 Scopolamine (Transderm-Scop) 1 patch Q72H TRANSDERM Last administered on 06/02/19at 11:59; Admin Dose 1 PATCH; Start 06/02/19 at 11:00 Atropine Sulfate (Atropine 1% Oph) 2 drop Q4H PRN SL TERMINAL CONGESTION; Start 06/02/19 at 10:30 Eye Lubricant (Artificial Tears Oph) 2 drop EACH SHIFT PRN BOTH EYES DRY EYES Last administered on 06/02/19at 12:00; Admin Dose 2 DROP; Start 06/02/19 at 10:30 Dimethicone (Blistex Lip [place]) 1 applic EACH SHIFT PRN TOP DRY LIP(S) Last ad ministered on 06/02/19at 12:01; Admin Dose 1 APPLIC; Start 06/02/19 at 10:30 Acetaminophen (Tylenol Supp) 650 mg Q4H PRN [place] MILD PAIN(1-3) OR TEMP>38C; Start 06/02/19 at 10:30 Bisacodyl (Dulcolax Supp) 10 mg DAILY PRN [place] CONSTIPATION; Start 06/02/19 at 10:30 Morphine Sulfate/ Sodium Chloride 100 ml @ 2 mls/hr TITRATE IV Last administered on 06/02/19at 12:12; Admin Dose 2 MLS/HR; Start 06/02/19 at 12:00 SHANTI SIMS NP Jun 02, 2019 18:47
--- NOTE | 2019-06-04 06:30 | HP ---
DATE OF ADMISSION: 05/29/2019 HOSPITAL DIAGNOSIS: 1. Acute respiratory failure due to recent septic shock. 2. Comorbid advanced ____ disease. 3. Acute and chronic kidney disease. CHIEF COMPLAINT AND HISTORY OF PRESENT ILLNESS: History was obtained from medical record and discuss ion with his nurse, Jasvir. The patient is an 88-year-old gentleman with history of Alzheimer diseas e, hypertension. The patient was transferred from [facility] due to acute respiratory distress. The patient was hypoxemic and tachycardic. The patient was brought in to ER. The patient had a temperature of 101 and was saturating only 81%. The patient was put on nonrebrea ther mask and saturation went up to 90s. The patient was admitted at [facility] an d was diagnosed with septic shock due to pneumonia. The patient was treated with broad spectrum IV a ntibiotic and then breathing treatment and supplemental oxygen. The patient was seen by infectious d isjulita, tack maker and medical writer; however, continued to decline. The patient is DNR and patien t was referred to hospice today and was deemed appropriate for [facility] level of care due to respiratory d istress. Currently, patient is on high flow oxygen and also on morphine drip at 1 mg an hour. REVIEW OF SYSTEMS: Could not be obtained as patient is noncommunicative. ALLERGIES: NONE. PAST MEDICAL HISTORY: As stated above. In addition, patient also has history of dysphagia and dysli pidemia. PAST MEDICAL HISTORY: None. SOCIAL HISTORY: No smoking or alcohol. FAMILY HISTORY: Noncontributory to the patient's condition. PHYSICAL EXAMINATION: GENERAL: The patient is lethargic, nonverbal. VITAL SIGNS: Blood pressure 115/56, pulse 104, temperature 97.8. The patient is currently on FIO2 4 0% on high flow oxygen. HEENT: Atraumatic, normocephalic. Conjunctivae and lids normal. Nose is normal. Oropharynx reveal ed dry oral mucosa. NECK: Supple, no mass, no thyromegaly. CHEST: Diminished air entry at bases, few scattered coarse breath sounds. CARDIOVASCULAR: ____ normal. No murmur. ABDOMEN: Soft, nondistended, nontender. EXTREMITIES: No edema. NEUROLOGIC: The patient is lethargic and no history of any possible. LABORATORY DATA: White count 42,000, hemoglobin 9.3, platelet 205. Sodium 164, potassium 3.8, BUN 7 0, creatinine 1.4. IMPRESSION: 1. Acute respiratory failure. 2. Recent septic shock. 3. Pneumonia. 4. Advanced ____ dementia. 5. Acute and chronic kidney disease. 6. History of ____. PLAN: The patient will be started on morphine drip at 1 mg an hour and will be titrated up to 2 mg a n hour. After that, patient will be switched to oral nasal cannula and the morphine dose will be opt imized to keep him comfortable. We will also put him on atropine drops for secretion, Tylenol for fe marianna and chills, and DuoNeb for chest congestion. The patient is terminally ill and is appropriate [facility] level of care. Plan of care discussed with desk nurseJasvir. We will also discuss with the family when available. Dictated By: LV LOPEZ MD AB/NTS Conf#: [id number] DID#: [id number] CC: IRA GALINDO MD;*EndCC*
--- NOTE | 2019-06-04 10:13 | DS ---
DATE OF ADMISSION: 05/29/2019 DATE OF DISCHARGE: 06/02/2019 This is a patient who was admitted 05/29/2019 with acute severe sepsis, septic shock, hypoxemia, acut e shortness of breath, hyperthermia of 103 degrees temperature, dehydration, acute renal failur e, pneumonia and congestive heart failure. The patient was admitted being DNR. Patient was started on medical treatment starting IV antibiotics, IV hydration, breathing support and respiratory treatme nts. The patient unfortunately was having very poor response to the multiple regimen treatment that he was getting and the patient being DNR, I had multiple discussions with family members, brothers, b rothers sons, and therefore they decided that the patient will benefit from hospice care. On 019 patient was discharged to in hospital hospice services in the hospice department. DISCHARGE DIAGNOSES: Severe septic shock, severe sepsis, hypotension, hypoxemia, dehydration, acute renal failure and advanced disease process. Dictated By: IRA BERMAN/HARJIT Conf#: [id number] DID#: [id number]
--- NOTE | 2019-06-04 22:06 | DES ---
DATE OF ADMISSION: 05/29/2019 DATE OF : 06/02/2019 DATE OF : 06/02/2019 at 2105 CAUSE OF : Acute respiratory failure due to pneumonia. OTHER DIAGNOSES: Advanced Alzheimer's dementia, acute on chronic kidney disease, and history of hype rtension. REASON FOR ADMISSION: The patient was an 88-year-old gentleman with history of hypertension and urvashi ry disease. The patient was a resident of [facility]. The patient was br ought into [facility] on the day of admission due to respiratory distress. The pat ient had a temperature of 101 and was saturating only 81%. Chest x-ray revealed the patient was diag nosed with healthcare facility-acquired pneumonia and septic shock. The patient was treated with a c ourse of IV antibiotic and high flow oxygen. Initially, the patient also required a nonrebreather ma sk. The patient continued to decline and was referred to hospice. The patient was admitted under [facility] on 06/02/2019 at [facility] level of care. The patient was started on an IV morphine drip initia lly at 1 mg an hour, which was titrated up for comfort care. The patient's family did not want to co ntinue with the high flow oxygen and was the patient was switched to nasal cannula and morphine dose was increased to 2 mg an hour. The patient was also started on atropine drops for secretions and Duo Neb for chest congestion and Tylenol for fever and mild pain. The patient at the time of my examinat ion, was noncommunicative and did not have any recent bleed. There was no fever or chills on the day of admission. During the hospital stay, the patient was seen by Dr. Ortega from a pulmonary stand point. Dr. Sow from infectious disease standpoint. Dr. Rosenthal from a cardiac standpoint. Echoc ardiogram revealed an EF of 35%, indicating systolic heart failure. The patient continued to decline and on 06/02/2019, the patient was found to be unresponsive and had no respiratory movement. The p atient did not have any pulse or heart sounds, no audible breath sounds. Pupils were fixed and dilat ed and patient was pronounced at 2105 on 06/02/2019. Dictated By: LV LI/HARJIT Conf#: [id number] DID#: [id number] CC: IRA GALINDO MD;*[facility]*
== END 2019-06-02 23:00 | disposition expired | DRG 871 ==
LOC: E/R 09:00 → 2NE 09:16 → ICU 05-30 11:50 → TEL 05-31 16:33 → 2NE 06-01 23:44
PROVIDERS: ADMIT Family Medicine; ATTEND Internal Medicine
DX: A41.9 Sepsis, unspecified organism (principal); J18.9 Pneumonia, unspecified organism; J96.01 Acute respiratory failure with hypoxia; R65.21 Severe sepsis with septic shock; G93.40 Encephalopathy, unspecified; D68.9 Coagulation defect, unspecified; E87.0 Hyperosmolality and hypernatremia; R64 Cachexia; N17.9 Acute kidney failure, unspecified; I50.20 Unspecified systolic (congestive) heart failure; I95.9 Hypotension, unspecified; R13.10 Dysphagia, unspecified; J44.9 Chronic obstructive pulmonary disease, unspecified; I11.0 Hypertensive heart disease with heart failure; E86.0 Dehydration; F02.80 Dementia in other diseases classified elsewhere, unspecified severity, without behavioral disturbance, psychotic disturbance, mood disturbance, and anxiety; G30.9 Alzheimer's disease, unspecified; D64.9 Anemia, unspecified; K21.9 Gastro-esophageal reflux disease without esophagitis; E78.5 Hyperlipidemia, unspecified; M19.90 Unspecified osteoarthritis, unspecified site; R00.0 Tachycardia, unspecified; N18.9 Chronic kidney disease, unspecified; Y95 Nosocomial condition; Z68.22 Body mass index [BMI] 22.0-22.9, adult; Z66 Do not resuscitate
CPT/HCPCS: 36415; 36600; 71045; 80048; 80053; 80202; 81001; 82270; 82550; 82553; 82803; 82962; 83605; 83880; 84443; 84484; 85025; 85610; 85730; 87081; 87086; 92610; 93005; 93306; 94640; 94664; C9113; J0282; J0692; J1940; J2270; J2405; J3370; J7030; J7042; J7060; J7070